=== PATIENT | female | born 1990 | race Caucasian/White ===

== ENCOUNTER 2016-10-25 01:44 | Inpatient (IN) | payer SELFPAY ==
[2016-10-25 02:18] LABS: APPEARANCE,URINE CLEAR; BILIRUBIN,URINE NEGATIVE (NEGATIVE); GLUCOSE, URINE NEGATIVE (NEGATIVE); KETONES,URINE NEGATIVE (NEGATIVE); LEUKOCYTE ESTERASE,URINE LARGE (NEGATIVE); NITRITE,URINE NEGATIVE (NEGATIVE); PROTEIN,URINE NEGATIVE (NEGATIVE); URINE SPECIFIC GRAVITY 1.005; UROBILINOGEN,URINE NEGATIVE mg/dL (<2.0)
[2016-10-25 02:24] LABS: AMNISURE (ROM) NEGATIVE (NEGATIVE)
[2016-10-25 02:34] LABS: URINE BARBITURATES SCREEN NEGATIVE; URINE METHADONE SCREEN NEGATIVE; URINE OPIATES LOW NEGATIVE; URINE PHENCYCLIDINE SCREEN NEGATIVE
[2016-10-25] MEDS ORDERED: PENICILLIN G POTASSIUM 5,000,000 UNIT in DEXTROSE 5%-WATER 100 ML IV ONE (02:44)
[2016-10-25] MEDS ORDERED: MISOPROSTOL 0.1 MG TABLET PO ONE (02:47)
[2016-10-25 03:17] LABS: ABSOLUTE LYMPHOCYTES (AUTO) 1.1 10^3/uL (0.5-4.7); ABSOLUTE MONOCYTES (AUTO) 0.5 10^3/uL (0.1-1.4); ABSOLUTE NEUT (AUTO) 5.9 10^3/uL (1.7-8.2); BASOPHILS % (AUTO) 0.2 % (0-2); EOSINOPHILS % (AUTO) 0.4 % (0-6); HEMATOCRIT 30.4 % (36.0-47.0); HEMOGLOBIN 9.7 g/dL (12.0-15.5); HGB HCT DIFFERENCE -1.3; MEAN CORPUSCULAR HEMOGLOBIN 23.8 pg (27.0-33.4); MEAN CORPUSCULAR HGB CONC 31.9 g/dL (32.0-36.0); MEAN CORPUSCULAR VOLUME 75 fl (80-97); MONOCYTES % (AUTO) 6.9 % (3-13); RED BLOOD COUNT 4.06 10^6/uL (3.72-5.28); SEGMENTED NEUTROPHILS % (AUTO) 77.5 % (42-78); WHITE BLOOD COUNT 7.6 10^3/uL (4.0-10.5)
[2016-10-25] MEDS ORDERED: MISOPROSTOL 0.1 MG TABLET ONE (03:17)
[2016-10-25] MEDS ORDERED: PENICILLIN G-K 5 MILLION UNIT VIAL ONE (03:17)
[2016-10-25 03:38] LABS: ALANINE AMINOTRANSFERASE 30 U/L (9-52); ALBUMIN 3.3 g/dL (3.5-5.0); ALKALINE PHOSPHATASE 172 U/L (38-126); ANION GAP 10 (5-19); ASPARTATE AMINO TRANSFERASE 24 U/L (14-36); BILIRUBIN,TOTAL 0.5 mg/dL (0.2-1.3); BLOOD UREA NITROGEN 8 mg/dL (7-20); CALCIUM 9.6 mg/dL (8.4-10.2); CARBON DIOXIDE 24 mmol/L (22-30); CHLORIDE 104 mmol/L (98-107); CREATININE RESULT 0.57 mg/dL (0.52-1.25); GLUCOSE 90 mg/dL (75-110); LDH 410 U/L (313-618); POTASSIUM 4.8 mmol/L (3.6-5.0); TOTAL PROTEIN 6.9 g/dL (6.3-8.2); URIC ACID 4.2 mg/dL (2.5-6.2)
[2016-10-25] MEDS: RINGERS SOLUTION,LACTATED 1,000 ML IV PRN ×2 (04:05→07:00)
[2016-10-25] MEDS ORDERED: LABETALOL HCL INJ 20 MG/4 ML DISP.SYRIN IV ONE ×2 (04:41→04:43)
[2016-10-25] MEDS ORDERED: OXYTOCIN/NORMAL SALINE 0 UNIT/0 ML RTUINJ ONE (05:05)
[2016-10-25] MEDS: OXYTOCIN/NORMAL SALINE 20 UNIT/1,000 ML RTUINJ IV PRN ×2 (05:20→08:00)
[2016-10-25 05:39] LABS: CHLAM PCR NOT DETECTED (NOT DETECT)
[2016-10-25] MEDS ORDERED: PENICILLIN G POTASSIUM 2,500,000 UNIT in DEXTROSE 5%-WATER 50 ML IV SCH (06:46)
[2016-10-25] MEDS ORDERED: FENTANYL/BUPIVACAINE/NS/PF 200 MCG/100 ML RTUINJ EPI ONE (06:58)
[2016-10-25] MEDS ORDERED: BUPIVACAINE HCL 0.25 % INJ/PF (2.5 MG/1 ML) 30 ML VIAL ONE (06:58)
[2016-10-25] MEDS ORDERED: EPHEDRINE SULFATE INJ 50 MG/1 ML AMPULE ONE (06:58)
[2016-10-25] MEDS ORDERED: MAGNESIUM SULFATE 4 GM/100 ML RTUPB IV ONE (07:30)
[2016-10-25] MEDS ORDERED: OXYTOCIN/NORMAL SALINE 20 UNIT/1,000 ML RTUINJ ONE (07:35)
[2016-10-25] MEDS ORDERED: LIDOCAINE 1% INJ-PF (10 MG/ML) 30 ML SDV ONE (07:35)
[2016-10-25] MEDS ORDERED: MISOPROSTOL 0.2 MG TABLET ONE (07:35)
[2016-10-25] MEDS ORDERED: MISOPROSTOL 0.2 MG TABLET PR PRN (07:45)
--- NOTE | 2016-10-25 08:01 | L&D Flow Sheet ---
LD Flowsheet Datetime Report Generated by CPN: 10/25/2016 08:00 Datetime: 10/25/2016 07:52 NBP Sys/Serenity/Mean (mmHg): 140 (QS system process) : 99 (QS system process) : 114 (QS system process) Pulse: 107 (QS system process) LaborFlag: Antepartum (QS system process) Datetime: 10/25/2016 07:43 NBP Sys/Serenity/Mean (mmHg): 141 (QS system process) : 99 (QS system process) : 114 (QS system process) Pulse: 115 (QS system process) LaborFlag: Antepartum (QS system process) Datetime: 10/25/2016 07:36 NBP Sys/Serenity/Mean (mmHg): 184 (QS system process) : 98 (QS system process) : 128 (QS system process) Pulse: 122 (QS system process) LaborFlag: Antepartum (QS system process) Datetime: 10/25/2016 07:35 NBP Sys/Serenity/Mean (mmHg): 161 (QS system process) : 105 (QS system process) : 125 (QS system process) Pulse: 109 (QS system process) LaborFlag: Antepartum (QS system process) Datetime: 10/25/2016 07:33 NBP Sys/Serenity/Mean (mmHg): 163 (QS system process) : 97 (QS system process) : 122 (QS system process) Pulse: 113 (QS system process) LaborFlag: Antepartum (QS system process) Datetime: 10/25/2016 07:32 NBP Sys/Serenity/Mean (mmHg): 158 (QS system process) : 96 (QS system process) : 121 (QS system process) Pulse: 111 (QS system process) LaborFlag: Antepartum (QS system process) Datetime: 10/25/2016 07:31 NBP Sys/Serenity/Mean (mmHg): 165 (QS system process) : 101 (QS system process) : 127 (QS system process) Pulse: 109 (QS system process) LaborFlag: Antepartum (QS system process) Datetime: 10/25/2016 07:27 NBP Sys/Serenity/Mean (mmHg): 178 (QS system process) : 118 (QS system process) : 141 (QS system process) Pulse: 110 (QS system process) LaborFlag: Antepartum (QS system process) Datetime: 10/25/2016 07:26 NBP Sys/Serenity/Mean (mmHg): 196 (QS system process) : 119 (QS system process) : 151 (QS system process) Pulse: 118 (QS system process) LaborFlag: Antepartum (QS system process) Datetime: 10/25/2016 07:25 NBP Sys/Serenity/Mean (mmHg): 185 (QS system process) : 109 (QS system process) : 142 (QS system process) Pulse: 111 (QS system process) LaborFlag: Antepartum (QS system process) Datetime: 10/25/2016 07:24 NBP Sys/Serenity/Mean (mmHg): 179 (QS system process) : 108 (QS system process) : 135 (QS system process) Pulse: 117 (QS system process) LaborFlag: Antepartum (QS system process) Datetime: 10/25/2016 07:23 NBP Sys/Serenity/Mean (mmHg): 189 (QS system process) : 98 (QS system process) : 130 (QS system process) Pulse: 109 (QS system process) LaborFlag: Antepartum (QS system process) Datetime: 10/25/2016 07:22 NBP Sys/Serenity/Mean (mmHg): 167 (QS system process) : 98 (QS system process) : 123 (QS system process) Pulse: 108 (QS system process) LaborFlag: Antepartum (QS system process) Datetime: 10/25/2016 07:21 NBP Sys/Serenity/Mean (mmHg): 172 (QS system process) : 99 (QS system process) : 130 (QS system process) Pulse: 108 (QS system process) LaborFlag: Antepartum (QS system process) Datetime: 10/25/2016 07:20 NBP Sys/Serenity/Mean (mmHg): 180 (QS system process) : 109 (QS system process) : 138 (QS system process) Pulse: 110 (QS system process) LaborFlag: Antepartum (QS system process) Datetime: 10/25/2016 07:19 NBP Sys/Serenity/Mean (mmHg): 176 (QS system process) : 97 (QS system process) : 128 (QS system process) Pulse: 108 (QS system process) LaborFlag: Antepartum (QS system process) Datetime: 10/25/2016 07:18 NBP Sys/Serenity/Mean (mmHg): 180 (QS system process) : 111 (QS system process) : 137 (QS system process) Pulse: 109 (QS system process) LaborFlag: Antepartum (QS system process) Datetime: 10/25/2016 07:17 NBP Sys/Serenity/Mean (mmHg): 186 (QS system process) : 113 (QS system process) : 140 (QS system process) Pulse: 113 (QS system process) LaborFlag: Antepartum (QS system process) Datetime: 10/25/2016 07:16 NBP Sys/Serenity/Mean (mmHg): 198 (QS system process) : 113 (QS system process) : 146 (QS system process) Pulse: 111 (QS system process) Epidural Procedure Other: Pump Started (Marysol Ring, RN) Anesthesia Level Check: T11 (Marysol Ring, RN) LaborFlag: Antepartum (QS system process) Datetime: 10/25/2016 07:14 NBP Sys/Serenity/Mean (mmHg): 184 (QS system process) : 104 (QS system process) : 136 (QS system process) Pulse: 115 (QS system process) LaborFlag: Antepartum (QS system process) Datetime: 10/25/2016 07:13 NBP Sys/Serenity/Mean (mmHg): 177 (QS system process) : 95 (QS system process) : 128 (QS system process) Pulse: 108 (QS system process) LaborFlag: Antepartum (QS system process) Datetime: 10/25/2016 07:12 NBP Sys/Serenity/Mean (mmHg): 182 (QS system process) : 114 (QS system process) : 141 (QS system process) Pulse: 120 (QS system process) Communication Comments: Report to Valeri Nj RN. Care relinquished at this time. Dr. Lane remains on unit assessing patient for possible magnesium therapy. (Marysol Morris RN) LaborFlag: Antepartum (QS system process) Datetime: 10/25/2016 07:11 Epidural Procedure: Loading Dose (Marysol Ring, RN) Epidural Procedure: Cath Placed (Marysol Ring, RN) Datetime: 10/25/2016 07:08 Pulse: 122 (QS system process) SpO2 (%): 99 (QS system process) LaborFlag: Antepartum (QS system process) Datetime: 10/25/2016 07:07 Procedure TIME OUT Procedure Verify: Correct Patient Identity; Correct Side and Site are Marked; Accurate Procedure Consent Form; Agreement on Procedure to be Done; Correct Patient Position; Relevant Images and Results are Properly Labeled and Displayed; Addressed Need to Administer Antibiotics or Fluids for Irrigation; Safety Precautions Based on Patient History or Medication Use (Marysol Ring, RN) Anesthesia Anesthesia Plans: Epidural (Marysol Ring, RN) Epidural Positioning: Sitting (Marysol Ring, RN) Datetime: 10/25/2016:04 Procedure TIME OUT Procedure Verify: Correct Patient Identity; Correct Side and Site are Marked; Accurate Procedure Consent Form; Agreement on Procedure to be Done; Correct Patient Position; Relevant Images and Results are Properly Labeled and Displayed; Addressed Need to Administer Antibiotics or Fluids for Irrigation; Safety Precautions Based on Patient History or Medication Use (Marysol Ring, RN) Anesthesia Anesthesia Plans: Epidural (Marysol Ring, RN) Epidural Positioning: Sitting (Marysol Ring, RN) Anesthesia Comments: Dr. Park at bedside for epidural. (Marysol Ring, RN) Datetime: 10/25/2016 07:03 Pulse: 118 (QS system process) SpO2 (%): 99 (QS system process) LaborFlag: Antepartum (QS system process) Datetime: 10/25/2016 07:00 NBP Sys/Serenity/Mean (mmHg): 186 (QS system process) : 115 (QS system process) : 141 (QS system process) Pulse: 115 (QS system process) Uterine Activity Monitor Mode: External; Palpation (Yanna Chalman, RN) Frequency (min): 2-3 (Yanna Chalman, RN) Quality: Moderate to Strong (Yanna Chalman, RN) Duration (sec): 40-60 (Yanna Chalman, RN) Pattern: Normal: <= 5 Contractions in 10 Minutes (Yanna Chalman, RN) Resting Tone (Palpate): Relaxed (Yanna Chalman, RN) Assessment A Monitor Mode: External US (Yanna Dominicman, RN) FHR Baseline Rate : 155 (Yanna Dominicman, RN) FHR Baseline Changes: No Baseline Change (Yanna Palencia RN) Variability: Moderate 6-25 bpm (Yanna Palencia RN) Accelerations: 10X10 (Yanna Palencia RN) Decelerations: None (Yanna Palencia RN) LaborFlag: Antepartum (QS system process) Datetime: 10/25/2016 06:49 Communication Comments: Dr. Lane on unit. Orders received to allow patient to receive epidural first then call/notify provider of further BPs for further possible treatment. (Marysol Morris, RN) Datetime: 10/25/2016 06:48 NBP Sys/Serenity/Mean (mmHg): 178 (QS system process) : 114 (QS system process) : 137 (QS system process) Pulse: 106 (QS system process) LaborFlag: Antepartum (QS system process) Datetime: 10/25/2016 06:45 NBP Sys/Serenity/Mean (mmHg): 181 (QS system process) : 111 (QS system process) : 134 (QS system process) Pulse: 108 (QS system process) Uterine Activity Monitor Mode: External; Palpation (Yanna Chalman, RN) Frequency (min): 2-3 (Yanna Chalman, RN) Quality: Moderate to Strong (Yanna Dominicman, RN) Duration (sec): 40-60 (Yanna Dominicman, RN) Pattern: Normal: <= 5 Contractions in 10 Minutes (Yanna Talha, RN) Resting Tone (Palpate): Relaxed (Yanna Dominicman, RN) Assessment A Monitor Mode: External US (Yanna Chalman, RN) FHR Baseline Rate : 155 (Yanna Chalman, RN) FHR Baseline Changes: No Baseline Change (Yanna Chalman, RN) Variability: Moderate 6-25 bpm (Yanna Chalman, RN) Accelerations: 10X10 (Yanna Chalman, RN) Decelerations: None (Yanna Chalman, RN) Medications Pitocin (milliunit): Pitocin Increased to (milliunits) @ 8 (Marysol Ring, RN) LaborFlag: Antepartum (QS system process) Datetime: 10/25/2016 06:43 Pulse: 229 (QS system process) SpO2 (%): 81 (QS system process) LaborFlag: Antepartum (QS system process) Datetime: 10/25/2016 06:39 Provider Reviewed Strip: Yes (Marysol Ring, RN) Communication Comments: Dr. Lane on unit (Marysol Ring, RN) Datetime: 10/25/2016 06:32 Anesthesia Comments: Call placed to Dr. Chekan (Marysol Ring, RN) Datetime: 10/25/2016 06:30 NBP Sys/Serenity/Mean (mmHg): 175 (QS system process) : 106 (QS system process) : 134 (QS system process) Pulse: 107 (QS system process) Uterine Activity Monitor Mode: External; Palpation (Yanna Chalman, RN) Frequency (min): 2-4 (Yanna Chalman, RN) Quality: Moderate to Strong (Yanna Chalman, RN) Duration (sec): 40-50 (Yanna Chalman, RN) Pattern: Normal: <= 5 Contractions in 10 Minutes (Yanna Chalman, RN) Resting Tone (Palpate): Relaxed (Yanna Chalman, RN) Assessment A Monitor Mode: External US (Yanna Chalman, RN) FHR Baseline Rate : 155 (Yanna Chalman, RN) FHR Baseline Changes: No Baseline Change (Yanna Chalman, RN) Variability: Moderate 6-25 bpm (Yanna Chalman, RN) Accelerations: 10X10 (Yanna Chalman, RN) Decelerations: None (Yanna Chalman, RN) LaborFlag: Antepartum (QS system process) Datetime: 10/25/2016 06:16 Medications Pitocin (milliunit): Pitocin Increased to (milliunits) @ 6 (Marysol Ring, RN) Datetime: 10/25/2016 06:15 Uterine Activity Monitor Mode: External; Palpation (Marysol Ring, RN) Frequency (min): x2 (Marysol Ring, RN) Quality: Mild/Moderate (Marysol Ring, RN) Duration (sec): 40-60 (Marysol Ring, RN) Resting Tone (Palpate): Relaxed (Marysol Ring, RN) Assessment A Monitor Mode: External US (Marysol Ring, RN) FHR Baseline Rate : 150 (Marysol Ring, RN) Variability: Minimal - Undetectable to <=5 bpm (Marysol Ring, RN) Accelerations: None (Marysol Ring, RN) Decelerations: Variable (Marysol Ring, RN) Medications Pitocin (milliunit): Pitocin Remains (milliunits) @ 4 (Marysol Ring, RN) Datetime: 10/25/2016 06:07 Patient Care IV/Blood Work: IV Bolus Started (Marysol Ring, RN) Patient Care Comments: for epidural (Marysol Ring, RN) Procedure TIME OUT Procedure Verify: Correct Patient Identity; Correct Side and Site are Marked; Accurate Procedure Consent Form; Correct Patient Position; Relevant Images and Results are Properly Labeled and Displayed; Addressed Need to Administer Antibiotics or Fluids for Irrigation; Safety Precautions Based on Patient History or Medication Use (Marysol Ring, RN) Anesthesia Anesthesia Plans: Epidural (Marysol Ring, RN) Epidural Positioning: Sitting (Marysol Ring, RN) Datetime: 10/25/2016 06:05 Vaginal Exam Dilatation (cm): 2.5 (Marysol Ring, RN) Effacement (%): 80 (Marysol Ring, RN) Station: -2 (Marysol Ring, RN) Exam by: B. Ring RN (Marysol Ring, RN) Vaginal Bleeding: None (Marysol Ring, RN) Cervix, Consistency: Soft (Marysol Ring, RN) Cervix, Position: Posterior (Marysol Ring, RN) Datetime: 10/25/2016 06:04 Pain Coping: Requesting Pain Medication or Epidural (Marysol Ring, RN) Datetime: 10/25/2016 06:03 Patient Position/Activity: Left Lateral (Marysol Ring, RN) Datetime: 10/25/2016 06:02 Actions for Decelerations: Side to Side (Marysol Ring, RN) Comments: Pt sitting straight up and leaning over (Marysol Ring, RN) Communication Communication: RN at Bedside (Marysol Ring, RN) Datetime: 10/25/2016 06:00 Uterine Activity Monitor Mode: External; Palpation (Marysol Ring, RN) Frequency (min): 4-7 (Marysol Ring, RN) Quality: Mild/Moderate (Marysol Ring, RN) Duration (sec): 40-70 (Marysol Ring, RN) Resting Tone (Palpate): Relaxed (Marysol Ring, RN) Assessment A Monitor Mode: External US (Marysol Ring, RN) FHR Baseline Rate : 150 (Marysol Ring, RN) Variability: Moderate 6-25 bpm (Marysol Ring, RN) Accelerations: 15X15 (Marysol Ring, RN) Decelerations: None (Marysol Ring, RN) Medications Pitocin (milliunit): Pitocin Remains (milliunits) @ 4 (Marysol Ring, RN) Datetime: 10/25/2016 05:50 Hygiene: Underpad Changed; Peripad Changed (Marysol Ring, RN) I/O Interventions: Up to BR (Marysol Ring, RN) Datetime: 10/25/2016 05:45 NBP Sys/Serenity/Mean (mmHg): 147 (QS system process) : 95 (QS system process) : 114 (QS system process) Pulse: 95 (QS system process) Uterine Activity Monitor Mode: External; Palpation (Marysol Ring, RN) Frequency (min): x2 (Marysol Ring, RN) Quality: Mild (Marysol Ring, RN) Duration (sec): 40-70 (Marysol Ring, RN) Resting Tone (Palpate): Relaxed (Marysol Ring, RN) Assessment A Monitor Mode: External US (Marysol Ring, RN) FHR Baseline Rate : 145 (Marysol Ring, RN) Variability: Moderate 6-25 bpm (Marysol Ring, RN) Accelerations: 15X15 (Marysol Ring, RN) Decelerations: None (Marysol Ring, RN) Medications Pitocin (milliunit): Pitocin Increased to (milliunits) @ 4 (Marysol Ring, RN) LaborFlag: Antepartum (QS system process) Datetime: 10/25/2016 05:30 NBP Sys/Serenity/Mean (mmHg): 144 (QS system process) : 94 (QS system process) : 114 (QS system process) Pulse: 105 (QS system process) Uterine Activity Monitor Mode: External; Palpation (Marysol Ring, RN) Frequency (min): Irregular (Marysol Ring, RN) Quality: Mild (Marysol Ring, RN) Duration (sec): 40-50 (Marysol Ring, RN) Resting Tone (Palpate): Relaxed (Marysol Ring, RN) Assessment A Monitor Mode: External US (Marysol Ring, RN) FHR Baseline Rate : 150 (Marysol Ring, RN) Variability: Moderate 6-25 bpm (Marysol Ring, RN) Accelerations: 15X15 (Marysol Ring, RN) Decelerations: None (Marysol Ring, RN) Medications Pitocin (milliunit): Pitocin Remains (milliunits) @ 2 (Marysol Ring, RN) LaborFlag: Antepartum (QS system process) Datetime: 10/25/2016 05:22 Patient Position/Activity: Right Tilt (Marysol Ring, RN) Datetime: 10/25/2016 05:19 Hygiene: Underpad Changed; Peripad Changed (Marysol Ring, RN) Datetime: 10/25/2016 05:13 I/O Interventions: Up to BR (Marysol Ring, RN) Datetime: 10/25/2016 05:12 NBP Sys/Serenity/Mean (mmHg): 146 (QS system process) : 88 (QS system process) : 111 (QS system process) Pulse: 98 (QS system process) Medications Pitocin (milliunit): Pitocin Started (milliunits) @ 2 (Marysol Ring, RN) LaborFlag: Antepartum (QS system process) Datetime: 10/25/2016 05:09 Patient Care Comments: LR restarted after d5 bolus (Marysol Ring, RN) Datetime: 10/25/2016 05:01 Pain Pain Scale: 2 (Marysol Ring, RN) Pain Presence: Intermittent (Marysol Ring, RN) Pain Type: Contraction (Marysol Ring, RN) Pain Location: Abdomen (Marysol Ring, RN) Pain Goal: 1 (Marysol Ring, RN) Pain Relief Measures: Comfort Measures (Marysol Ring, RN) Pain Coping: Talking Through Contractions (Marysol Ring, RN) LaborFlag: Antepartum (QS system process) Datetime: 10/25/2016 05:00 Uterine Activity Monitor Mode: External; Palpation (Marysol Ring, RN) Frequency (min): Irregular (Marysol Ring, RN) Quality: Mild (Marysol Ring, RN) Duration (sec): 40-50 (Marysol Ring, RN) Resting Tone (Palpate): Relaxed (Marysol Ring, RN) Assessment A Monitor Mode: External US (Marysol Ring, RN) FHR Baseline Rate : 150 (Marysol Ring, RN) Variability: Moderate 6-25 bpm (Marysol Ring, RN) Accelerations: 15X15 (Marysol Ring, RN) Decelerations: None (Marysol Ring, RN) Datetime: 10/25/2016 04:59 NBP Sys/Serenity/Mean (mmHg): 144 (QS system process) : 84 (QS system process) : 109 (QS system process) Pulse: 97 (QS system process) Medication Comments: 300 ml d5LR bolus given IV now x 1 (Marysol Ring, RN) LaborFlag: Antepartum (QS system process) Datetime: 10/25/2016 04:58 NBP Sys/Serenity/Mean (mmHg): 146 (QS system process) : 91 (QS system process) : 113 (QS system process) Pulse: 100 (QS system process) LaborFlag: Antepartum (QS system process) Datetime: 10/25/2016 04:57 NBP Sys/Serenity/Mean (mmHg): 147 (QS system process) : 92 (QS system process) : 114 (QS system process) Pulse: 98 (QS system process) LaborFlag: Antepartum (QS system process) Datetime: 10/25/2016 04:53 NBP Sys/Serenity/Mean (mmHg): 156 (QS system process) : 100 (QS system process) : 120 (QS system process) Pulse: 102 (QS system process) LaborFlag: Antepartum (QS system process) Datetime: 10/25/2016 04:50 Medication Comments: 10 mg IV push labetalol now x1 given over 2 minutes for blood pressure. (Marysol Ring, RN) Datetime: 10/25/2016 04:42 NBP Sys/Serenity/Mean (mmHg): 157 (QS system process) : 102 (QS system process) : 124 (QS system process) Pulse: 99 (QS system process) LaborFlag: Antepartum (QS system process) Datetime: 10/25/2016 04:37 Communication Comments: Dr. Lane notified of BP. Orders received to give 10 mg IV labetalol now x1 (Marysol Ring, RN) Datetime: 10/25/2016 04:33 NBP Sys/Serenity/Mean (mmHg): 160 (QS system process) : 109 (QS system process) : 128 (QS system process) Pulse: 102 (QS system process) LaborFlag: Antepartum (QS system process) Datetime: 10/25/2016 04:30 Uterine Activity Monitor Mode: External; Palpation (Marysol Ring, RN) Frequency (min): Occasional (Marysol Ring, RN) Quality: Mild (Marysol Ring, RN) Duration (sec): 40-60 (Marysol Ring, RN) Resting Tone (Palpate): Relaxed (Marysol Ring, RN) Assessment A Monitor Mode: External US (Marysol Ring, RN) FHR Baseline Rate : 155 (Marysol Ring, RN) Variability: Minimal - Undetectable to <=5 bpm (Marysol Ring, RN) Accelerations: None (Marysol Ring, RN) Decelerations: None (Marysol Ring, RN) Datetime: 10/25/2016 04:23 Communication Communication: Provider Orders Received; Call/Page Placed to Provider (Yanna Palencia RN) Notification Reason: Status Update; Status; Maternal Vital Sign Change; Lab/Diagnostic Study (Yanna Palencia RN) Communication Comments: Call placed to Dr. Lane. Report to include FHR, unable to begin cytotec due to nonreactive strip, toco data, vitals, urinalysis and lab results. Orders received to give 300 ml bolus of d5w then start pitocin as soon as baby is reactive at 2 miliunits/hr and go up 2 miliunits/hr q30 minutes for a maximum of 20 miliunits/hr or until adequate labor is established. (Yanna Palencia RN) Datetime: 10/25/2016 04:12 NBP Sys/Serenity/Mean (mmHg): 155 (QS system process) : 96 (QS system process) : 120 (QS system process) Pulse: 105 (QS system process) Respirations: 20 (Marysol Ring, RN) Temperature (F): 98.4 (Marysol Ring, RN) Temperature (C): 36.9 (QS system process) Temperature Route: Oral (Marysol Morris, RN) I/O Interventions: Up to BR (Marysol Ring, RN) LaborFlag: Antepartum (QS system process) Datetime: 10/25/2016 04:05 Antibiotics: Start Antibiotics; Penicillin IV (Units) @ 5,000,000 (Marysol Ring, RN) Datetime: 10/25/2016 04:02 NBP Sys/Serenity/Mean (mmHg): 152 (QS system process) : 95 (QS system process) : 118 (QS system process) Pulse: 101 (QS system process) LaborFlag: Antepartum (QS system process) Datetime: 10/25/2016 04:00 Uterine Activity Monitor Mode: External; Palpation (Marysol Ring, RN) Frequency (min): Irregular (Marysol Ring, RN) Quality: Mild (Marysol Ring, RN) Duration (sec): 40-70 (Marysol Ring, RN) Resting Tone (Palpate): Relaxed (Marysol Ring, RN) Assessment A Monitor Mode: External US (Marysol Ring, RN) FHR Baseline Rate : 155 (Maryslo Ring, RN) Variability: Minimal - Undetectable to <=5 bpm (Marysol Ring, RN) Accelerations: 10X10 (Marysol Ring, RN) Decelerations: None (Marysol Ring, RN) Datetime: 10/25/2016 03:59 Pain Pain Scale: 2 (Marysol Ring, RN) Pain Presence: Intermittent (Marysol Ring, RN) Pain Type: Contraction (Marysol Ring, RN) Pain Location: Abdomen (Marysol Ring, RN) Pain Goal: 1 (Marysol Ring, RN) Pain Relief Measures: Comfort Measures (Marysol Ring, RN) Pain Coping: Talking Through Contractions; Breathing Through Contractions (Marysol Ring, RN) LaborFlag: Antepartum (QS system process) Datetime: 10/25/2016 03:53 NBP Sys/Serenity/Mean (mmHg): 162 (QS system process) : 111 (QS system process) : 132 (QS system process) Pulse: 106 (QS system process) LaborFlag: Antepartum (QS system process) Datetime: 10/25/2016 03:38 I/O Interventions: Up to BR (Marysol Ring, RN) Datetime: 10/25/2016 03:30 Uterine Activity Monitor Mode: External; Palpation (Marysol Ring, RN) Frequency (min): Irregular (Marysol Ring, RN) Quality: Mild (Marysol Ring, RN) Duration (sec): 40-50 (Marysol Ring, RN) Resting Tone (Palpate): Relaxed (Marysol Ring, RN) Assessment A Monitor Mode: External US (Marysol Ring, RN) FHR Baseline Rate : 155 (Marysol Ring, RN) Variability: Minimal - Undetectable to <=5 bpm (Marysol Ring, RN) Accelerations: None (Marysol Ring, RN) Decelerations: None (Marysol Ring, RN) Datetime: 10/25/2016 03:17 I/O Interventions: Up to BR (Marysol Ring, RN) Datetime: 10/25/2016 03:00 Uterine Activity Monitor Mode: External; Palpation (Marysol Ring, RN) Frequency (min): Irregular (Marysol Ring, RN) Quality: Mild (Marysol Ring, RN) Duration (sec): 40-70 (Marysol Ring, RN) Resting Tone (Palpate): Relaxed (Marysol Ring, RN) Assessment A Monitor Mode: External US (Marysol Ring, RN) FHR Baseline Rate : 150 (Marysol Ring, RN) Variability: Minimal - Undetectable to <=5 bpm (Marysol Ring, RN) Accelerations: None (Marysol Ring, RN) Decelerations: None (Marysol Ring, RN) Datetime: 10/25/2016 02:43 Communication Communication: Provider Orders Received; Call/Page Placed to Provider (Marysol Morris RN) Communication Comments: Call placed to Dr. Lane. Report to include amnisure negative, but amniotic fluid visualized with moderate meconium, SVE, FHR, toco data, vital signs with BP out of normal limits. Orders received to admit patient, give 25 mcg PO now x1, may have an epidural when desired and draw PIH labs. Call provider when further orders needed. (Marysol Morris RN) Datetime: 10/25/2016 02:42 NBP Sys/Serenity/Mean (mmHg): 141 (QS system process) : 100 (QS system process) : 117 (QS system process) Pulse: 103 (QS system process) LaborFlag: Antepartum (QS system process) Datetime: 10/25/2016 02:35 I/O Interventions: Ice Chips Given; Clear Liquids Given (Marysol Ring, RN) Datetime: 10/25/2016 02:30 NBP Sys/Serenity/Mean (mmHg): 153 (QS system process) : 99 (QS system process) : 121 (QS system process) Pulse: 99 (QS system process) Uterine Activity Monitor Mode: External; Palpation (Marysol Ring, RN) Frequency (min): Irregular (Marysol Ring, RN) Quality: Mild (Marysol Ring, RN) Duration (sec): 40-70 (Marysol Ring, RN) Resting Tone (Palpate): Relaxed (Marysol Ring, RN) Assessment A Monitor Mode: External US (Marysol Ring, RN) FHR Baseline Rate : 145 (Marysol Ring, RN) Variability: Moderate 6-25 bpm (Marysol Ring, RN) Accelerations: 10X10 (Marysol Ring, RN) Decelerations: None (Marysol Ring, RN) Hygiene: Underpad Changed; Peripad Changed; Gown Changed (Marysol Ring, RN) I/O Interventions: Up to BR (Marysol Ring, RN) LaborFlag: Antepartum (QS system process) Datetime: 10/25/2016 02:20 NBP Sys/Serenity/Mean (mmHg): 155 (QS system process) : 105 (QS system process) : 125 (QS system process) Pulse: 112 (QS system process) LaborFlag: Antepartum (QS system process) Datetime: 10/25/2016 02:18 Vaginal Exam Dilatation (cm): 1.0 (Marysol Ring, RN) Effacement (%): 25 (Marysol Ring, RN) Station: -2 (Marysol Ring, RN) Exam by: B. Ring RN (Marysol Ring, RN) Vaginal Bleeding: None (Marysol Ring, RN) Cervix, Consistency: Soft (Marysol Ring, RN) Cervix, Position: Posterior (Marysol Ring, RN) Datetime: 10/25/2016 02:17 Membrane Status: Ruptured (Marysol Ring, RN) Amniotic Fluid Color: Moderate Meconium (Marysol Ring, RN) Amniotic Fluid Odor: Normal (Marysol Ring, RN) Membrane Comments: Moderate amniotic fluid with meconium noted on peripad. (Marysol Ring, RN) Datetime: 10/25/2016 02:16 NBP Sys/Serenity/Mean (mmHg): 161 (QS system process) : 108 (QS system process) : 129 (QS system process) Pulse: 112 (QS system process) LaborFlag: Antepartum (QS system process) Datetime: 10/25/2016 02:15 Patient Position/Activity: Left Tilt (Marysol Ring, RN) Datetime: 10/25/2016 02:14 NBP Sys/Serenity/Mean (mmHg): 153 (QS system process) : 101 (QS system process) : 120 (QS system process) Pulse: 114 (QS system process) Respirations: 20 (Marysol Ring, RN) Temperature (F): 98.1 (Marysol Ring, RN) Temperature (C): 36.7 (QS system process) Temperature Route: Oral (Marysol Ring, RN) LaborFlag: Antepartum (QS system process) Datetime: 10/25/2016 02:09 Frequency (min): Irregular (Marysol Ring, RN) Pain Pain Scale: 2 (Marysol Ring, RN) Pain Presence: Intermittent (Marysol Ring, RN) Pain Type: Contraction (Marysol Ring, RN) Pain Location: Abdomen (Marysol Ring, RN) Pain Goal: 1 (Marysol Ring, RN) Pain Relief Measures: Comfort Measures (Marysol Ring, RN) Pain Coping: Talking Through Contractions; Breathing Through Contractions (Marysol Ring, RN) Vaginal Bleeding: None (Marysol Ring, RN) Maternal Assessment Level of Consciousness: Fully Conscious (Marysol Ring, RN) DTR's/Clonus: DTRs 2+; No Clonus (Marysol Ring, RN) Headache: Denies (Marysol Ring, RN) Nausea/Vomiting: Present (Annotations: Pt states feeling slightly nauseated) (Marysol Ring, RN) RUQ Epigastric Pain: Denies (Marysol Ring, RN) Teaching Instructional Method: Verbal; Patient Instructed; Family/Support Person Instructed; Verbalized Understanding (Marysol Ring, RN) Plan of Care: Plan of Care Discussed (Marysol Ring, RN) Unit Routine: Celina to Room; Call Padgett; Bed; Handwashing; Monitoring; Safety/Fall Risk Prevention; Bathroom Privileges (Marysol Ring, RN) LaborFlag: Antepartum (QS system process) Datetime: 10/25/2016 02:07 Vital Signs Stage of : Antepartum (Marysol Ring, RN) Datetime: 10/25/2016 02:03 Membranes Ruptured Date/Time: 10/25/2016 02:17 (Lilly Liang RN) Membranes Rupture Method: Spontaneous (Lilly Liang RN) Amniotic Fluid Amount: Moderate (Lilly Liang RN)
[2016-10-25] MEDS ORDERED: DIBUCAINE 1% OINTMENT 28 GM TP PRN (09:03)
[2016-10-25] MEDS ORDERED: ACETAMINOPHEN WITH CODEINE #3 TABLET PO PRN ×2 (09:03)
[2016-10-25] MEDS ORDERED: MEASLES,MUMPS&RUBELLA VACC/PF 0.5 ML VIAL SUBCUT PRN (09:03)
[2016-10-25] MEDS ORDERED: BENZOCAINE/MENTHOL AEROSOL SPRAY 56 ML TOP PRN (09:03)
[2016-10-25] MEDS ORDERED: ZOLPIDEM TARTRATE 5 MG TABLET PO PRN (09:03)
[2016-10-25] MEDS ORDERED: OXYTOCIN/NORMAL SALINE 1,000 ML IV PRN (09:03)
[2016-10-25] MEDS ORDERED: DIPH/PERTUSS(ACELL)/TETANUS VAC/PF 0.5 ML SYR (>=10YO) IM PRN (09:03)
--- NOTE | 2016-10-25 09:03 | Delivery Summary ---
Del Sum A-C Datetime Report Generated by CPN: 10/25/2016 09:03 ADMISSION DATA Chief Complaint: Suspected Ruptured Membranes Indication for Induction: Not Applicable Admission Impression: Term, Intrauterine ; No Active Labor; Ruptured Membranes Admit Provider Comments: GBS Unknown DELIVERY PERSONNEL Delivery Doctor:: Irvin Lane, DO Labor and Delivery Nurse:: Monica Nj RN Nursery Nurse:: Lilly Liang RN Student Observers:: SN Malina Manager Student Services/SMALL MACHINE BINDERY OPERATOR: Priti Caballero, PHYSICS FACULTY MEMBER MATERNAL INFORMATION Delivery Anesthesia: Epidural Medications After Delivery: Pitocin Bolus-Please Comment; Other-Please Comment Meds After Delivery Comment: 20 units pitocin in 1000mL NSS Cytotec 1000 mcg AR Estimated Blood Loss (ml): 150 Maternal Complications: Precipitous Labor (<3hrs) Provider Comments: of viable female in EMMETT position Loose Nuchal x1 easily reduced Placenta delievered spontaneous and intact with 3v cord Fundus firm LABOR SUMMARY EDC: 10/23/2016 00:00 No. Babies in Womb: 1 Attempted: No Labor Anesthesia: Epidural LABOR INFORMATION Reason for Induction: Not Applicable Onset of Labor: 10/25/2016 02:17 Complete Dilatation: 10/25/2016 07:27 Oxytocin: Augmentation Group B Beta Strep: unnown Antibiotics # of Doses: 1 Antibiotics Time of Last Dose: 0405 Name of Antibiotic Given: PCN Steroids Given: None Reason Steroids Not Administered: Not Applicable MEMBRANES Membranes Rupture Method: Spontaneous Rupture of Membranes: 10/25/2016 02:17 Length of Rupture (hr): 5.37 Amniotic Fluid Color: Moderate Meconium Amniotic Fluid Amount: Moderate Amniotic Fluid Odor: Normal STAGES OF LABOR Stage 1 hr: 5 Stage 1 min: 10 Stage 2 hr: 0 Stage 2 min: 12 Stage 3 hr: 0 Stage 3 min: 2 Total Time in Labor hr: 5 Total Time in Labor min: 24 VAGINAL DELIVERY Episiotomy: None Laceration Extension: N/A Laceration Type: None Sponge Count Correct: Yes CSECTION DELIVERY CSection Incision: N/A BABY A INFORMATION Delivery Date/Time: 10/25/2016 07:39 Method of Delivery: Vaginal Born in Route : No : N/A Forceps: N/A Vacuum Extraction: N/A Shoulder Dystocia : No PRESENTATION/POSITION BABY A Presentation: Cephalic Cephalic Presentation: Vertex Vertex Position: Right Occipital Anterior Breech Presentation: N/A PLACENTA INFORMATION BABY A Placenta Delivery Time : 10/25/2016 07:41 Placenta Method of Delivery: Spontaneous Placenta Status: Delivered SCORES BABY A Heart Rate 1 min: >100 bpm Resp Effort 1 min: Good Cry Reflex Irritability 1 min: Cough or Sneeze or Pulls Away Muscle Tone 1 min: Active Motion Color 1 min: Blue/Pale Resuscitation Effort 1 min: Tactile Stimulation SCORE 1 MIN: 8 Heart Rate 5 min: >100 bpm Resp Effort 5 min: Good Cry Reflex Irritability 5 min: Cough or Sneeze or Pulls Away Muscle Tone 5 min: Active Motion Color 5 min: Body Dunean, Extremities Blue Resuscitation Effort 5 min: Tactile Stimulation SCORE 5 MIN: 9 INFANT INFORMATION BABY A Gestational Age at Delivery: 40.2 Gestational Status: Full Term- 39- 40.6 Weeks Outcome : Liveborn Condition : Stable Infant Sex: Female IDENTIFICATION BABY A Verification Date/Time: 10/25/2016 08:02 ID Band Number: [id number] Mother's Name Verified: Yes RN Verifying : H. Azul, RN and L. Nj RN WEIGHT/LENGTH BABY A Infant Birthweight (gm): 3230 Infant Weight (lb): 7 Weight (oz): 2 Infant Length (in): 19.75 Infant Length (cm): 50.17 CORD INFORMATION BABY A No. Cord Vessels: 3 Nuchal Cord : Around Neck x1, Loose Cord Blood Taken: Yes-For Storage (Mom's Blood type +) Infant Suction: Mouth; Nose ASSESSMENT BABY A Complications: Meconium Physical Findings at Delivery: Within Normal Limits Infant Respirations: Appears Normal Skin to Skin: Yes (Annotations: Data stored by [facility] on behalf of user) Skin to Skin Time (min): 50 Multimedia Assistant/ALS Called : No Infant Care By: Zuleyma Liang RN Transferred To: Remains with Mother SIGNATURES Signature: with User ID: [email or web address]
[2016-10-25] MEDS ORDERED: PENICILLIN G-K 5 MILLION UNIT VIAL IV SCH (10:46)
--- NOTE | 2016-10-25 11:04 | Admission Physical ---
Datetime Report Generated by CPN: 10/25/2016 11:04 CURRENT ADMISSION Chief Complaint: Suspected Ruptured Membranes Indication for Induction: Not Applicable Admit Plan: Admit to Unit; Initiate Labor Induction Protocol ALLERGIES Medication Allergies: No Medication Allergies: latex (10/25/2016) Latex: Latex Allergies Food Allergies: None Environmental Allergies: None OBSTETRICAL HISTORY EDC: 10/23/2016 00:00 : 3 Para: 2 Term: 2 : 0 SAB: 0 IAB: 0 Ectopic: 0 Livin Cesareans: 0 VBACs: 0 Multiple Births: 0 Gestational Diabetes: No Rh Sensitization: No Incompetent Cervix: No COCO: No Infertility: No ART Treatment: No Uterine Anomaly: No IUGR: No Hx Previous C/S: No Macrosomia: No Hx Loss/Stillborn: No PIH: No Hx : No Placenta Previa/Abruption: No Depression/PP Depression: No PTL/PROM: No Post Hemorrhage: No Current Procedures: Ultrasound Obstetrical History Comments: G1: 02/2012; girl 6# 8 oz at 38 weeks G2: 03/2014; boy 6#12 oz at 38 weeks G3: current SEE RECORDS Alcohol: No Marijuana : No Cocaine: No Other Illicit Drugs: No Cigarettes: Never Smoker. [id number] MEDICAL HISTORY Diabetes: No Blood Transfusion: No Pulmonary Disease (Asthma, TB): No Breast Disease: No Hypertension: No Certified Prosthetist/Orthotist Surgery: No Heart Disease: No Hosp/Surgery: Yes Autoimmune Disorder: No Anesthetic Complications: No Kidney Disease: No Abnormal Pap Smear: No Neuro/Epilepsy: No Psychiatric Disorders: Yes Other Medical Diseases: No Hepatitis/Liver Disease: No Significant Family History: No Varicosities/Phlebitis: No Trauma/Violence : No Thyroid Dysfunction: No Medical History Comments: Hospitalized for of children; adenoidectomy in 2003 INFECTIOUS HISTORY Gonorrhea: No Genital Herpes: No Chlamydia: No Tuberculosis: No Syphilis: No Hepatitis: No HIV/AIDS Exposure: No Rash or Viral Illness: No HPV: No PHYSICAL EXAM General: Normal HEENT: Normal Neurologic: Normal Thyroid: Deferred Heart: Normal Lungs: Normal Breast: Deferred Back: Normal Abdomen: Normal Genitourinary Exam: Normal Extremities: Normal DTRs: Normal Pelvic Type: Adequate Vital Signs: Reviewed; Within Normal Limits VAGINAL EXAM Dilatation: 1 Effacement: 50 Station: -3 MEMBRANES Membranes: Ruptured Amniotic Fluid Color: Meconium, Light FETUS A EGA: 40.2 Monitoring: External US FHR- Baseline: 150 Accelerations: 15X15 Decelerations: None FHR Category: Category I Presentation: Vertex Admit Comment: GBS Unknown PLANS FOR LABOR AND DELIVERY Labor and Delivery: None Pain Management: Epidural Feeding Preference: Breast Benefit of Breast Feed Discussed: Yes Circumcision: N/A INFORMED CONSENT Signature: with User ID: [email or web address]
[2016-10-25] MEDS: SENNOSIDES/DOCUSATE 8.6-50 MG 1 EACH TABLET PO SCH (13:29)
[2016-10-25] MEDS: FERROUS SULFATE 325 MG TABLET PO SCH ×2 (13:29→17:42)
[2016-10-25] MEDS: PRENATAL VITAMIN W-O CA NO5/FE FUMARATE/FA CAPSULE PO SCH (13:29)
[2016-10-25] MEDS: DOCUSATE SODIUM 100 MG CAPSULE PO SCH ×2 (13:29→17:42)
[2016-10-25] MEDS: IBUPROFEN 800 MG TABLET PO SCH ×2 (13:31→21:54)
[2016-10-25] MEDS ORDERED: INFLUENZA ADLT QUAD (36MOS+) 2016-17 VAC 0.5 ML SYR IM PRN (13:52)
--- NOTE | 2016-10-25 19:01 | L&D Flow Sheet ---
LD Flowsheet Datetime Report Generated by CPN: 10/25/2016 19:00 Datetime: 10/25/2016 09:08 NBP Sys/Serenity/Mean (mmHg): 145 (QS system process) : 97 (QS system process) : 115 (QS system process) Pulse: 109 (QS system process) Respirations: 16 (Monica Nj RN) Pain Scale: 0 (Monica Nj RN) Pain Presence: None/Denies (Monica Nj RN) Pain Type: N/A (Monica Nj RN) Pain Goal: 0 (Monica Nj RN) Datetime: 10/25/2016 08:56 NBP Sys/Serenity/Mean (mmHg): 156 (QS system process) : 101 (QS system process) : 121 (QS system process) Pulse: 111 (QS system process) Respirations: 16 (Monica Nj, RN) Temperature (F): 98.3 (Monica Nj, RN) Temperature (C): 36.8 (QS system process) Temperature Route: Oral (Monica Nj, RN) Pain Scale: 0 (Monica Nj, RN) Pain Presence: None/Denies (Monica Nj, RN) Pain Type: N/A (Monica Nj, RN) Pain Goal: 0 (Monicatracy Burnetton, RN) Datetime: 10/25/2016 08:53 NBP Sys/Serenity/Mean (mmHg): 155 (QS system process) : 102 (QS system process) : 125 (QS system process) Pulse: 106 (QS system process) Respirations: 16 (Monica Nj, RN) Pain Scale: 0 (Monica Nj, RN) Pain Presence: None/Denies (Monica Nj, RN) Pain Type: N/A (Monica Nj, RN) Pain Goal: 0 (Monica Nj, RN) Datetime: 10/25/2016 08:38 NBP Sys/Serenity/Mean (mmHg): 146 (QS system process) : 98 (QS system process) : 117 (QS system process) Pulse: 104 (QS system process) Respirations: 16 (Monica Nj, RN) Pain Scale: 0 (Monica Nj, RN) Pain Presence: None/Denies (Monica Nj, RN) Pain Type: N/A (Monica Nj, RN) Pain Goal: 0 (Monica Nj, RN) Datetime: 10/25/2016 08:23 NBP Sys/Serenity/Mean (mmHg): 147 (QS system process) : 101 (QS system process) : 118 (QS system process) Pulse: 103 (QS system process) Respirations: 16 (Monica Nj, RN) Pain Scale: 0 (Monica Burnetton, RN) Pain Presence: None/Denies (Monica Nj, RN) Pain Type: N/A (Monica Nj, RN) Pain Goal: 0 (Monica Nj, RN) Datetime: 10/25/2016 08:08 NBP Sys/Serenity/Mean (mmHg): 144 (QS system process) : 100 (QS system process) : 117 (QS system process) Pulse: 108 (QS system process) Respirations: 16 (Monicatracy Nj, RN) Pain Scale: 0 (Monica Nj, RN) Pain Presence: None/Denies (Monica Nj, RN) Pain Type: N/A (Monica Nj, RN) Pain Goal: 0 (Monica Nj, RN) Datetime: 10/25/2016 07:52 NBP Sys/Serenity/Mean (mmHg): 140 (QS system process) : 99 (QS system process) : 114 (QS system process) Pulse: 107 (QS system process) Respirations: 16 (Monicatracy Nj, RN) Pain Scale: 0 (Monica Nj, RN) Pain Presence: None/Denies (Monica Nj, RN) Pain Type: N/A (Monica Nj, RN) Pain Goal: 0 (Monica Nj, RN) Datetime: 10/25/2016 07:43 NBP Sys/Serenity/Mean (mmHg): 141 (QS system process) : 99 (QS system process) : 114 (QS system process) Pulse: 115 (QS system process) Respirations: 16 (Monica Nj RN) Pain Scale: 0 (Monica Nj RN) Pain Presence: None/Denies (Monica Nj, JANICE) Pain Type: N/A (Monica Nj RN) Pain Goal: 0 (Monica Nj RN) Datetime: 10/25/2016 07:41 Stage 2 Comments: Placenta delivered; Pitocin bolusing. (Monica Nj, JANICE) Datetime: 10/25/2016 07:39 Stage of : Recovery (Monica Nj RN) Stage 2 Comments: viable girl; see delivery summary (Monica Nj RN) Datetime: 10/25/2016 07:38 Stage 2 Comments: room set up for delivery (Monica Nj, RN) Communication: Provider at Bedside (Monica Nj, RN) Provider Notified (Name): Lane. (Monica Nj, RN) Datetime: 10/25/2016 07:37 Communication: Call/Page Placed to Provider (Monica Nj, RN) Provider Notified (Name): Lane (Monica Nj, RN) Communication Comments: Notified of SVE, pt. urge to push, and imminent delivery. (Monica Nj, RN) Datetime: 10/25/2016 07:36 NBP Sys/Serenity/Mean (mmHg): 184 (QS system process) : 98 (QS system process) : 128 (QS system process) Pulse: 122 (QS system process) LaborFlag: Antepartum (QS system process) Datetime: 10/25/2016 07:35 NBP Sys/Serenity/Mean (mmHg): 161 (QS system process) : 105 (QS system process) : 125 (QS system process) Pulse: 109 (QS system process) LaborFlag: Antepartum (QS system process) Datetime: 10/25/2016 07:33 NBP Sys/Serenity/Mean (mmHg): 163 (QS system process) : 97 (QS system process) : 122 (QS system process) Pulse: 113 (QS system process) Pain Scale: 0 (Monica Nj RN) Pain Presence: None/Denies (Monica Nj RN) Pain Type: N/A (Monica Nj RN) Pain Goal: 0 (Monica Nj RN) LaborFlag: Antepartum (QS system process) Datetime: 10/25/2016 07:32 NBP Sys/Serenity/Mean (mmHg): 158 (QS system process) : 96 (QS system process) : 121 (QS system process) Pulse: 111 (QS system process) LaborFlag: Antepartum (QS system process) Datetime: 10/25/2016 07:31 NBP Sys/Serenity/Mean (mmHg): 165 (QS system process) : 101 (QS system process) : 127 (QS system process) Pulse: 109 (QS system process) Communication Comments: RN at bedside to remain until delivery (Lilly Liang RN) LaborFlag: Antepartum (QS system process) Datetime: 10/25/2016 07:30 Monitor Mode: External (Lilly Azul, RN) Frequency (min): 2-3 (Lilly Azul, RN) Quality: Moderate to Strong (Lilly Azul, RN) Duration (sec): 60 (Lilly Azul, RN) Resting Tone (Palpate): Relaxed (Lilly Azul, RN) Monitor Mode: External US (Lilly Azul, RN) FHR Baseline Rate : 150 (Lilly Azul, RN) Variability: Moderate 6-25 bpm (Lilly Azul, RN) Accelerations: None (Lilly Azul, RN) Decelerations: Early (Lilly Azul, RN) Datetime: 10/25/2016 07:27 NBP Sys/Serenity/Mean (mmHg): 178 (QS system process) : 118 (QS system process) : 141 (QS system process) Pulse: 110 (QS system process) Dilatation (cm): 10.0 (Monica Nj RN) Effacement (%): 100 (Monica Nj RN) Station: 1 (Monica Nj RN) Exam by: Valeri Nj RN (Monica Nj RN) LaborFlag: Antepartum (QS system process) Datetime: 10/25/2016 07:26 NBP Sys/Serenity/Mean (mmHg): 196 (QS system process) : 119 (QS system process) : 151 (QS system process) Pulse: 118 (QS system process) LaborFlag: Antepartum (QS system process) Datetime: 10/25/2016 07:25 NBP Sys/Serenity/Mean (mmHg): 185 (QS system process) : 109 (QS system process) : 142 (QS system process) Pulse: 111 (QS system process) I/O Interventions: Hopkins Cath Inserted (Monica Nj RN) Patient Care Comments: Patent, draining clear, yellow urine. Stat lock to right inner thigh, bag below level of the bladder. (Monica Nj RN) LaborFlag: Antepartum (QS system process) Datetime: 10/25/2016 07:24 NBP Sys/Serenity/Mean (mmHg): 179 (QS system process) : 108 (QS system process) : 135 (QS system process) Pulse: 117 (QS system process) Patient Care Comments: Pt. supine with left tilt after epidural. (Monica Nj RN) LaborFlag: Antepartum (QS system process) Datetime: 10/25/2016 07:23 NBP Sys/Serenity/Mean (mmHg): 189 (QS system process) : 98 (QS system process) : 130 (QS system process) Pulse: 109 (QS system process) LaborFlag: Antepartum (QS system process) Datetime: 10/25/2016 07:22 NBP Sys/Serenity/Mean (mmHg): 167 (QS system process) : 98 (QS system process) : 123 (QS system process) Pulse: 108 (QS system process) LaborFlag: Antepartum (QS system process) Datetime: 10/25/2016 07:21 NBP Sys/Serenity/Mean (mmHg): 172 (QS system process) : 99 (QS system process) : 130 (QS system process) Pulse: 108 (QS system process) LaborFlag: Antepartum (QS system process) Datetime: 10/25/2016 07:20 NBP Sys/Serenity/Mean (mmHg): 180 (QS system process) : 109 (QS system process) : 138 (QS system process) Pulse: 110 (QS system process) LaborFlag: Antepartum (QS system process) Datetime: 10/25/2016 07:19 NBP Sys/Serenity/Mean (mmHg): 176 (QS system process) : 97 (QS system process) : 128 (QS system process) Pulse: 108 (QS system process) LaborFlag: Antepartum (QS system process) Datetime: 10/25/2016 07:18 NBP Sys/Serenity/Mean (mmHg): 180 (QS system process) : 111 (QS system process) : 137 (QS system process) Pulse: 109 (QS system process) LaborFlag: Antepartum (QS system process) Datetime: 10/25/2016 07:17 NBP Sys/Serenity/Mean (mmHg): 186 (QS system process) : 113 (QS system process) : 140 (QS system process) Pulse: 113 (QS system process) LaborFlag: Antepartum (QS system process) Datetime: 10/25/2016 07:16 NBP Sys/Serenity/Mean (mmHg): 198 (QS system process) : 113 (QS system process) : 146 (QS system process) Pulse: 111 (QS system process) Epidural Procedure Other: Pump Started (Marysol Ring, RN) Anesthesia Level Check: T11 (Marysol Ring, RN) LaborFlag: Antepartum (QS system process) Datetime: 10/25/2016 07:14 NBP Sys/Serenity/Mean (mmHg): 184 (QS system process) : 104 (QS system process) : 136 (QS system process) Pulse: 115 (QS system process) LaborFlag: Antepartum (QS system process) Datetime: 10/25/2016 07:13 NBP Sys/Serenity/Mean (mmHg): 177 (QS system process) : 95 (QS system process) : 128 (QS system process) Pulse: 108 (QS system process) LaborFlag: Antepartum (QS system process) Datetime: 10/25/2016 07:12 NBP Sys/Serenity/Mean (mmHg): 182 (QS system process) : 114 (QS system process) : 141 (QS system process) Pulse: 120 (QS system process) Communication Comments: Report to Valeri Nj RN. Care relinquished at this time. Dr. Lane remains on unit assessing patient for possible magnesium therapy. (Marysol Ring, RN) LaborFlag: Antepartum (QS system process) Datetime: 10/25/2016 07:11 Epidural Procedure: Loading Dose (Marysol Ring, RN) Epidural Procedure: Cath Placed (Marysol Ring, RN) Datetime: 10/25/2016 07:08 Pulse: 122 (QS system process) SpO2 (%): 99 (QS system process) LaborFlag: Antepartum (QS system process) Datetime: 10/25/2016 07:07 Procedure Verify: Correct Patient Identity; Correct Side and Site are Marked; Accurate Procedure Consent Form; Agreement on Procedure to be Done; Correct Patient Position; Relevant Images and Results are Properly Labeled and Displayed; Addressed Need to Administer Antibiotics or Fluids for Irrigation; Safety Precautions Based on Patient History or Medication Use (Marysol Morris, RN) Anesthesia Plans: Epidural (Marysol Morris, RN) Epidural Positioning: Sitting (Marysol Ring, RN) Datetime: 10/25/2016 07:05 Communication Comments: Report received from Anselmo Morris RN. Care assumed. (Monica Nj RN) Datetime: 10/25/2016 07:04 Procedure Verify: Correct Patient Identity; Correct Side and Site are Marked; Accurate Procedure Consent Form; Agreement on Procedure to be Done; Correct Patient Position; Relevant Images and Results are Properly Labeled and Displayed; Addressed Need to Administer Antibiotics or Fluids for Irrigation; Safety Precautions Based on Patient History or Medication Use (Marysol Morris, RN) Anesthesia Plans: Epidural (Marysol Morris RN) Epidural Positioning: Sitting (Marysol Morris, RN) Anesthesia Comments: Dr. Park at bedside for epidural. (Marysol Morris, RN) Datetime: 10/25/2016 07:03 Pulse: 118 (QS system process) SpO2 (%): 99 (QS system process) LaborFlag: Antepartum (QS system process) Datetime: 10/25/2016 07:00 NBP Sys/Serenity/Mean (mmHg): 186 (QS system process) : 115 (QS system process) : 141 (QS system process) Pulse: 115 (QS system process) Monitor Mode: External; Palpation (Yanna Palencia RN) Frequency (min): 2-3 (Yanna Palencia RN) Quality: Moderate to Strong (Yanna Palencia RN) Duration (sec): 40-60 (Yanna Palencia RN) Pattern: Normal: <= 5 Contractions in 10 Minutes (Yanna Palencia RN) Resting Tone (Palpate): Relaxed (Yanna Palencia RN) Monitor Mode: External US (Yanna Palencia RN) FHR Baseline Rate : 155 (Yanna Palencia RN) FHR Baseline Changes: No Baseline Change (Yanna Palencia RN) Variability: Moderate 6-25 bpm (Yanna Palencia RN) Accelerations: 10X10 (Yanna Palencia RN) Decelerations: None (Yanna Palencia RN) LaborFlag: Antepartum (QS system process)
[2016-10-26] MEDS: IBUPROFEN 800 MG TABLET PO SCH ×3 (05:39→21:15)
--- NOTE | 2016-10-26 06:01 | L&D Current Admission ---
Current Admit Datetime Report Generated by CPN: 10/26/2016 06:00 ADMISSION INFORMATION Current Admit Date/Time: 10/25/2016 02:43 (10/25/2016 02:53:Marysol Morris RN) Reason for Admission: Rupture of Membranes (10/25/2016 02:53:Marysol Morris RN) Chief Complaint: Suspected Rupture of Membranes (10/25/2016 02:53:Marysol Morris RN) Medications During : Vitamin (10/25/2016 02:53:Marysol Morris RN) EGA per Dates: 40.2 (10/25/2016 02:53:QS system process) Method of Arrival: Wheelchair (10/25/2016 02:53:Marysol Morris RN) Admitted From: Home (10/25/2016 02:53:Marysol Morris RN) Reason for Induction: Not Applicable (10/25/2016 02:53:Marysol Morris RN) Records Available: Yes (10/25/2016 02:53:Marysol Morris RN) General Admission Information: Reviewed; Updated; Confirmed (10/25/2016 02:53:Marysol Morris RN) General Admission Reviewed By: Anselmo Morris RN (10/25/2016 02:53:Marysol Morris RN) BELONGINGS/ADVANCED DIRECTIVES Other Belongings: See [facility] valuables form (10/25/2016 02:53:Marysol Morris RN) Disposition of Belongings: Kept with Patient (10/25/2016 02:53:Marysol Morris RN) Advance Direct for Healthcare: No, and Wants No Information (10/25/2016 02:53:Marysol Morris RN) Durable Power of Work Car Operator: No (10/25/2016 02:53:Marysol Morris RN) Living Will: No (10/25/2016 02:53:Marysol Morris RN) Organ Donor: Yes (10/25/2016 02:53:Marysol Morris RN) Pt Rights Information Given: Yes (10/25/2016 02:53:Marysol Morris RN) Pt Understands Pt Rights: Yes (10/25/2016 02:53:Marysol Morris RN) LEARNING ASSESSMENT Knowledge Level: Understands L_D Process (10/25/2016 02:53:Marysol Morris RN) Barriers to Learning: None (10/25/2016 02:53:Marysol Morris RN) Learning Readiness: Motivated (10/25/2016 02:53:Marysol Morris RN) Learns Best By: 1 to 1 Instruction; Demonstration (10/25/2016 02:53:Marysol Morris RN) Learning Needs: Labor and Delivery Process (10/25/2016 02:53:Marysol Morris RN) DOMESTIC VIOLANCE SCREENING Dom Viol Threatened/Hurt: No (10/25/2016 02:53:Marysol Morris RN) Hx of Abuse/Neglect past 2yrs: No (10/25/2016 02:53:Marysol Morris RN) Feel Unsafe Going Home: No (10/25/2016 02:53:Marysol Morris RN) Addt'l Observ Indicating Abuse: No (10/25/2016 02:53:Marysol Morris RN) Reason Unable to Complete Screen: N/A, Screen Completed (10/25/2016 02:53:Marysol Morris RN) Considered Personal Harm/Suicide: No (10/25/2016 02:53:Marysol Morris RN) NUTRITIONAL/FUNCTIONAL SCREENING Problem with Appetite >5 Days: No (10/25/2016 02:53:Marysol Morris RN) Chew/Swallow Difficulties: No (10/25/2016 02:53:Marysol Morris RN) Inappropriate Wt Gain/Loss: No (10/25/2016 02:53:Marysol Morris RN) Presence Skin Breakdown/Ulcer: No (10/25/2016 02:53:Marysol Morris RN) Special Diet: No (10/25/2016 02:53:Marysol Morris RN) Pt Requests Life Sciences Manager Visit: No (10/25/2016 02:53:Marysol Morris RN) Hx of Any of the Following?: N/A (10/25/2016 02:53:Marysol Morris RN) New Diagnosis of: N/A (10/25/2016 02:53:Marysol Morris RN) Requires Assist w/Ambulation: No (10/25/2016 02:53:Marysol Morris RN) Uses Assist Device to Ambulate: No (10/25/2016 02:53:Marysol Morris RN) Pt Requires Help w/ADL's: No (10/25/2016 02:53:Marysol Morris RN)
--- NOTE | 2016-10-26 06:01 | L&D General Admission ---
General Admit Datetime Report Generated by CPN: 10/26/2016 06:00 INFORMATION Patient Age: 26 (10/25/2016 01:46:QS system process) EDC: 10/23/2016 00:00 (10/25/2016 02:03:Marysol Morris RN) : 3 (10/25/2016 02:03:Marysol Morris RN) Para: 2 (10/25/2016 02:03:Marysol Morris RN) Term: 2 (10/25/2016 02:03:Marysol Morris RN) : 0 (10/25/2016 02:03:Marysol Morris RN) Spontaneous Abortions: 0 (10/25/2016 02:03:Marysol Morris RN) Induced Abortions: 0 (10/25/2016 02:03:Marysol Morris RN) Livin (10/25/2016 02:03:Marysol Morris RN) Cesareans: 0 (10/25/2016 02:03:Marysol Morris RN) VBACs: 0 (10/25/2016 02:03:Marysol Morris RN) Ectopic: 0 (10/25/2016 02:03:Marysol Morris RN) Multiple Births: 0 (10/25/2016 02:03:Marysol Morris RN) Baby, Number in Womb: 1 (10/25/2016 02:03:Marysol Morris RN) CARE Primary Shoe Laster: Other-Annotate (10/25/2016 02:03:Marysol Morris RN) Shoe Laster Other: [facility] for one visit (10/25/2016 02:03:Marysol Morris RN) Month of 1st Visit: 05/2016 (10/25/2016 02:03:Marysol Morris RN) Adequate Care: No (10/25/2016 02:03:Marysol Morris RN) Height (in): 63 (10/25/2016 11:02:QS system process) ALLERGIES Medication Allergy: No (10/25/2016 02:03:Marysol Morris RN) Medication Allergies: latex (10/25/2016) (10/25/2016 02:52:QS system process) Latex Allergy: Latex Allergies (10/25/2016 02:03:Marysol Ring, RN) Food Allergies: None (10/25/2016 02:03:Marysol Ring, RN) Environmental Allergies: None (10/25/2016 02:03:Marysol Ring, RN) COMMUNICATION Primary Language: Uzbek (10/25/2016 02:03:Marysol Morris RN) Medical Tx Preferred Language: Uzbek (10/25/2016 02:03:Marysol Ring, RN) Communication Barrier(s): None (10/25/2016 02:03:Marysol Ring, RN) DEMOGRAPHICS Address: [address] [place] [address] [place], [address] [place] [address] (10/25/2016 01:46:QS system process) Zipcode: [id number] (10/25/2016 01:46:QS system process) Home (10/25/2016 01:46:QS system process) SSN: [id number] (10/25/2016 01:46:QS system process) Next of Kin Name: JEAN ROSARIO (10/25/2016 01:46:QS system process) Next of Kin (10/25/2016 01:46:QS system process) Next of Kin Relationship: OR (10/25/2016 01:46:QS system process) Date of : 1990 (10/25/2016 01:46:QS system process) Marital Status: Single (10/25/2016 01:46:QS system process) Sex: Female (10/25/2016 01:46:QS system process) Race: (10/25/2016 01:46:QS system process) Ethnicity: Non- or (10/25/2016 01:46:QS system process) Catholic: None (10/25/2016 01:46:QS system process) DRUG AND ALCOHOL USE Alcohol: No (10/25/2016 02:03:Marysol Morris RN) Cigarettes: Never Smoker. [id number] (10/25/2016 02:03:Marysol Ring, RN) Marijuana: No (10/25/2016 02:03:Marysol Ring RN) Cocaine: No (10/25/2016 02:03:Marysol Ring RN) Other Illicit Drugs: No (10/25/2016 02:03:Marysol Ring, RN) VACCINE HISTORY Influenza Vaccine: No (10/25/2016 02:03:Marysol Morris RN) Pneumococcal Vaccine: No (10/25/2016 02:03:Marysol Morris RN) Tetanus Vaccine: No (10/25/2016 02:03:Marysol Morris RN) Tdap Vaccine: No (10/25/2016 02:03:Marysol Morris RN) Hepatitis B Vaccine: Uncertain (10/25/2016 02:03:Marysol Morris RN) Strap Maker: [facility] (10/25/2016 02:03:Marysol Morris RN) Feeding Preference: Breast (10/25/2016 02:03:Marysol Morris RN) Benefit of Breast Feed Discussed: Yes (10/25/2016 02:03:Marysol Morris RN) Circumcision: N/A (10/25/2016 02:03:Marysol Morris RN) Classes Attended: No (10/25/2016 02:03:Marysol Morris RN) Tubal Ligation: No (10/25/2016 02:03:Marysol Morris RN) Tubal Authorization Signed: N/A (10/25/2016 02:03:Marysol Morris RN) Consent: N/A (10/25/2016 02:03:Marysol Morris RN) Consent Signed: N/A (10/25/2016 02:03:Marysol Morris RN) Pain Management Plans: Epidural (10/25/2016 02:03:Marysol Morris RN) Plans for Labor and Delivery: None (10/25/2016 02:03:Marysol Morris RN) Support Person: Jean Gama10/25/2016 02:03:Marysol Morris RN) Support Person Relationship: (10/25/2016 02:03:Marysol Morris RN) Cultural/Spritual Practice: No (10/25/2016 02:03:Marysol Morris RN) Spir/Cult Dietary Needs: No (10/25/2016 02:03:Marysol Morris RN) LIVING SITUATION/DISCHARGE PLAN Living Arrangements: Apartment (10/25/2016 02:03:Marysol Morris RN) Adequate Access to:: Electric; Heat; Refrigeration; Plumbing/Running water; Phone; Transportation (10/25/2016 02:03:Marysol Morris RN) WIC Program: Needs referral (10/25/2016 02:03:Marysol Morris RN) Discharge Dog Breeder Person: Jean (10/25/2016 02:03:Marysol Morris RN) Person to Help after Discharge: Jean (10/25/2016 02:03:Marysol Morris RN) Currently Using Commun Resources: No (10/25/2016 02:03:Marysol Morris RN) Outside Agency/Structural Welder: N/A (10/25/2016 02:03:Marysol Morris RN) Car Seat for Discharge: Yes (10/25/2016 02:03:Marysol Morris RN) Adoption Requested: No (10/25/2016 02:03:Marysol Morris RN) Pt Contact w/infant Post : N/A (10/25/2016 02:03:Marysol Morris RN) LABS Blood Type: B Positive (10/25/2016 02:03:Yanna Palencia RN) Antibody Screen: negative (10/25/2016 02:03:Yanna Palencia RN) Hemoglobin: 9.7 L (10/25/2016 03:06:QS system process) Hematocrit: 30.4 L (10/25/2016 03:06:QS system process) MCV: 75 L (10/25/2016 03:06:QS system process) Group Beta Strep: unnown (10/25/2016 02:03:Lilly Liang RN) RPR/VDRL: Nonreactive (10/25/2016 02:03:Yanna Palencia RN) Hepatitis B: Positive (10/25/2016 02:03:Yanna Palencia RN) Rubella: Immune (10/25/2016 02:03:Yanna Palencia RN) OB/PREVIOUS HISTORY Previous Procedures: Ultrasound (10/25/2016 02:03:Marysol Morris RN) Current Procedures: Ultrasound (10/25/2016 02:03:Marysol Morris RN) History of Previous : No (10/25/2016 02:03:Marysol Morris RN) History of Gestational Diabetes: No (10/25/2016 02:03:Marysol Morris RN) History of PIH: No (10/25/2016 02:03:Marysol Morris RN) History of Incompetent Cervix: No (10/25/2016 02:03:Marysol Morris RN) History of Placenta Previa/Abrup: No (10/25/2016 02:03:Marysol Morris RN) History of Macrosomia: No (10/25/2016 02:03:Marysol Morris RN) History of IUGR: No (10/25/2016 02:03:Marysol Morris RN) History of Hemorrhage: No (10/25/2016 02:03:Marysol Morris RN) History of Loss/Stillborn: No (10/25/2016 02:03:Marysol Morris RN) History of : No (10/25/2016 02:03:Marysol Morris RN) History of D (Rh) Sensitization: No (10/25/2016 02:03:Marysol Morris RN) History Recurrent Loss/Stillborn: No (10/25/2016 02:03:Marysol Morris RN) History Depression/PP Depression: No (10/25/2016 02:03:Marysol Morris RN) History of Uterine Anomaly/COCO: No (10/25/2016 02:03:Marysol Morris RN) History of Infertility: No (10/25/2016 02:03:Marysol Morris RN) History of ART Treatment: No (10/25/2016 02:03:Marysol Morris RN) History of COCO: No (10/25/2016 02:03:Marysol Morris RN) Comments Obstetrical History: G1: 02/2012; girl 6# 8 oz at 38 weeks G2: 03/2014; boy 6#12 oz at 38 weeks G3: current (10/25/2016 02:03:Marysol Morris RN) MEDICAL HISTORY Med Hx Diabetes: No (10/25/2016 02:03:Marysol Morris RN) Med Hx Hypertension: No (10/25/2016 02:03:Marysol Morris RN) Med Hx Heart Disease: No (10/25/2016 02:03:Marysol Morris RN) Med Hx Autoimmune Disorder: No (10/25/2016 02:03:Mayrsol Morris RN) Med Hx Kidney Disease/UTI: No (10/25/2016 02:03:Marysol Morris RN) Med Hx Neurologic/Epilepsy: No (10/25/2016 02:03:Marysol Morris RN) Med Hx Psychiatric Disorders: Yes (10/25/2016 02:03:Marysol Morris RN) Med Hx Hepatitis/Liver Disease: No (10/25/2016 02:03:Marysol Morris RN) Med Hx Varicosities/Phlebitis: No (10/25/2016 02:03:Marysol Morris RN) Med Hx Thyroid Dysfunction: No (10/25/2016 02:03:Marysol Morris RN) Med Hx Trauma/Violence: No (10/25/2016 02:03:Marysol Morris RN) Med Hx Blood Transfusion: No (10/25/2016 02:03:Marysol Morris RN) Med Hx Pulmonary (Asthma,TB): No (10/25/2016 02:03:Marysol Morris RN) Med Hx Breast: No (10/25/2016 02:03:Marysol Morris RN) Med Hx SLURRY CONTROL TENDER Surgery: No (10/25/2016 02:03:Marysol Morris RN) Med Hx Hospitalization/Surgery: Yes (10/25/2016 02:03:Marysol Morris RN) Med Hx Anesthetic Complications: No (10/25/2016 02:03:Marysol Morris RN) Med Hx Abnormal Pap Smear: No (10/25/2016 02:03:Marysol Morris RN) Other Medical Diseases: No (10/25/2016 02:03:Marysol Morris RN) Med Hx Significant Family Hx: No (10/25/2016 02:03:Marysol Morris RN) Details of Med/Surg Hx: Hospitalized for of children; adenoidectomy in 2003 (10/25/2016 02:03:Marysol RingJANICE) INFECTIOUS HISTORY Inf Hx Gonorrhea: No (10/25/2016 02:03:Marysol Morris RN) Inf Hx Chlamydia: No (10/25/2016 02:03:Marysol Morris RN) Inf Hx Syphilis: No (10/25/2016 02:03:Marysol Morris RN) Inf Hx HIV/AIDS: No (10/25/2016 02:03:Marysol Morris RN) Inf Hx Human Papilloma Virus: No (10/25/2016 02:03:Marysol Morris RN) Inf Hx Pt/Partner Genital Herpes: No (10/25/2016 02:03:Marysol Morris RN) Inf Hx Tuberculosis/Exposure: No (10/25/2016 02:03:Marysol Morris RN) Inf Hx Hepatitis B,C: No (10/25/2016 02:03:Marysol Morris RN) Inf Hx Rash or Viral Illness: No (10/25/2016 02:03:Marysol Ring, RN) GENETIC HISTORY Gen Hx Age >=35 at PHANI: No (10/25/2016 02:03:Marysol Morris RN) Gen Hx Thalassemia: No (10/25/2016 02:03:Marysol Morris RN) Gen Hx Congenital Heart Defect: No (10/25/2016 02:03:Marysol Morris RN) Gen Hx Neural Tube Defect: No (10/25/2016 02:03:Marysol Morris RN) Gen Hx Down's Syndrome: No (10/25/2016 02:03:Marysol Morris RN) Gen Hx Miguel Angel-Sachs: No (10/25/2016 02:03:Marysol Morris RN) Gen Hx Devon: No (10/25/2016 02:03:Marysol Morris RN) Gen Hx Familial Dysautonomia: No (10/25/2016 02:03:Marysol Morris RN) Gen Hx Sickle Cell Disease/Trait: No (10/25/2016 02:03:Marysol Morris RN) Gen Hx Hemophilia/Blood Disorder: No (10/25/2016 02:03:Marysol Morris RN) Gen Hx Muscular Dystrophy: No (10/25/2016 02:03:Marysol Morris RN) Gen Hx Cystic Fibrosis: No (10/25/2016 02:03:Marysol Morris RN) Gen Hx Huntingtons Chorea: No (10/25/2016 02:03:Marysol Morris RN) Gen Hx Mental Retardation/Autism: No (10/25/2016 02:03:Marysol Morris RN) Gen Hx Tested for Fragile X: No (10/25/2016 02:03:Marysol Morris RN) Gen Hx Other Inher/Chromosomal: No (10/25/2016 02:03:Marysol Morris RN) Gen Hx Maternal Metabolic DO: No (10/25/2016 02:03:Marysol Morris RN) Gen Hx Pt Father or FOB Defect: No (10/25/2016 02:03:Marysol Morris RN) Gen Hx Other Genetic History: No (10/25/2016 02:03:Marysol Morris RN) Gen Hx Drugs/Meds since LMP: Yes (10/25/2016 02:03:Marysol Morris RN) Gen Hx Medications: PNV (10/25/2016 02:03:Marysol Morris RN)
--- NOTE | 2016-10-26 06:15 | L&D Care Plan ---
LD CARE PLANS Datetime Report Generated by CPN: 10/26/2016 06:15 Datetime: 10/25/2016 03:54 Pain State: Risk For (Coty Garcia RN) Related To: Labor and Delivery Process; Surgical Procedure; Complication(s) of (Coty Garcia RN) Goal(s): Patients Pain will be Assessed and Managed; Patient will Verbalize Adequate Relief of Pain or the Ability to [place] with Current Pain (Coty Garcia RN) Interventions: Assess Pain Severity on Scale of 0 (None) to 5 (Severe); Assess Type, Location and Intensity of Pain Each Time Client Reports Discomfort and Notify Provider if Unusal Pain Develops; Encourage Proper Breathing and Relaxation Techniques; Offer Alternatives Such as Repositioning, Calm Environment, Massages, Diversional Activities, Ice Pack, Splinting, and Ambulation; Administer Analgesics as Ordered; Assist with Epidural Placement as Appropriate; Evaluate Therapeutic Effectiveness of Medication and Treatments (Coty Garcia RN) Outcome: Patient will Report Absence or Relief of Pain Consistent with Established Pain Goal (Coty Garcia RN) Status: Ongoing (Coty Garcia RN) Outcome: Patient will have a Decrease in Signs and Symptoms of Discomfort (Coty Garcia RN) Status: Ongoing (Coty Garcia RN) Outcome: Pain will be Controlled During Procedures (Coty Garcia RN) Status: Ongoing (Coty Garcia RN) Anxiety State: Risk For (Coty Garcia RN) Related To: Labor and Delivery Process; Surgical Procedure (Coty Garcia RN) Goal(s): Patient will have Decreased Anxiety and be able to Function at Acceptable Levels (Coty Garcia RN) Interventions: Assess Verbal and Nonverbal Behavioral Indicators of Anxiety; Assist Patient to Identify and Verbalize Symptoms of Anxiety; Identify and Demonstrate Techniques to Control Anxiety; Assist Patient with Coping Mechanisms to Manage Anxiety; Provide Theraputic Touch for the Patient; Explain to Patient, Using a Calm Reassuring Approach and Nonmedical Terms, All Activities, Procedures, and Concerns; Instruct Patient and Family about Post Discharge Care, Limitations, Symptoms to Report and Resources Available (Coty Garcia RN) Outcome: Patient will Identify, Verbalize and Demonstrate Techniques to Control Anxiety (Coty Garcia RN) Status: Ongoing (Coty Garcia RN) Outcome: Patient's Posture, Facial Expressions, Gestures and Activity Level will Reflect Decreased Anxiety (Coty Garcia RN) Status: Ongoing (Coty Garcia RN) Outcome: Patient will Verbalize a Sense of Control and/or Acceptance of the Situation (Coty Garcia RN) Status: Ongoing (Coty Garcia RN) Outcome: Patient will Identify and Utilize Support Person (Coty Garcia RN) Status: Ongoing (Coty Garcia RN) Knowledge Deficit State: Risk For (Coty Garcia RN) Related To: Labor and Delivery Process; Surgical Procedures (Coty Garcia RN) Goal(s): Patient will Accurately Verbalize Understanding of Plan of Care and Treatment; Patient and Family will Accurately Verbalize Understanding of the Disease Process (Coty Garcia RN) Interventions: Assess Motivation and Willingness of Patient/Family to Learn; Assess Preferred Learning Mode: One to One Instruction, Reading, Videos, Group Discussion or Demonstration; Assess Barriers to Learning: Pain, Emotional State, Language Barrier, Cognitive Impairment, Visual or Hearing Deficits; Assess Patient and Family Knowledge of Disease Process, Medications and Treatment; Discuss Therapy and/or Treatment Options, Describe Rationale Behind Management, Therapy and Treatment Recommendations; Instruct Patient and Family on Signs and Symptoms to Report; Instruct Patient and Family on Medication Effects and Side Effects; Provide Appropriate and Timely Education Using Multiple Techniques; Provide Patient and Family with Support Group Information and Resources; Give Clear and Thorough Explanations and Demonstrations (Coty Garcia RN) Outcome: Patient and Family will Verbalize Understanding of Condition, Treatment and Signs and Symptoms to Report (Coty Garcia RN) Status: Ongoing (Coty Garcia RN) Outcome: Patient will Identify Perceived Learning Needs and Express Motivation to Learn (Coty Garcia RN) Status: Ongoing (Coty Garcia RN) Outcome: Patient will Verbalize Understanding of Desired Content, and/or Performs Desired Skill Prior to Discharge (Coty Garcia RN) Status: Ongoing (Coty Garcia RN) Infection State: Risk For (Coty Garcia RN) Related To: Surgical Procedures; Prolonged Labor or Induction; Premature/Prolonged Rupture of Membranes (Coty Garcia RN) Goal(s): The Patient will be Free of Infection, Vital Signs Stable and Lab Work within Normal Parameters (Coty Garcia RN) Interventions: Instruct and Reinforce Proper Handwashing, Hygiene, and Care Techniques to Patient and Family; Monitor Vital Signs; Monitor Patient for the Following Signs of Infection: Fever, Abdominal Tenderness, Unusual Discharge; Monitor Aminiotic Fluid, Urine and Lochia for Color and Odor; Observe Wounds, Incisions and Invasive Line Sites for Redness, Drainage and Edema; Assess IV Sites per Hospital Policy; Monitor Lab and Test Results and Notify Provider of Abnormal Findings; Assess Nutritional Status and Promote Good Nutrition (Coty Garcia RN) Outcome: Patient will Remain Free of Infection (Coty Garcia RN) Status: Ongoing (Coty Garcia RN) Outcome: Infection will be Recognized Early to Allow for Prompt Treatment (Coty Garcia RN) Status: Ongoing (Coty Garcia RN) Outcome: Patient will have Vital Signs Within Expected Range (Coty Garcia RN) Status: Ongoing (Coty Garcia RN) Fluid Volume State: Risk For (Coty Garcia RN) Related To: Gestational Hypertension; Surgical Procedures; Prolonged Labor or Induction (Coty Garcia RN) Goal(s): Patient will Achieve and Maintain a Balanced Fluid Volume Status; Hemodynamically Stable (Coty Garcia RN) Interventions: Monitor Vital Signs; Auscultate Breath Sounds; Monitor Patient for Skin Turgor, Mucous Membranes, Dry Skin, Weakness, Headaches and Confusion; Provide Oral Fluids as Ordered; Initiate and Maintain Intravenous Fluids as Ordered; Monitor Intake and Output as Indicated Per Patient Status; Accurately Measure Blood Loss; Monitor Lab and Test Results as Obtained and Notify Provider of Abnormal Findings; Monitor Patient's Weight (Coty Garcia RN) Outcome: Patient will have Clear Lung Sounds (Coty Garcia, RN) Status: Ongoing (Coty Garcia RN) Outcome: Patient will have Vital Signs within Expected Range (Coty Garcia, RN) Status: Ongoing (Coty Garcia, RN) Outcome: Urine Output will be within Expected Range (Coty Garcia RN) Status: Ongoing (Coty Garcia RN) Outcome: Patient will have Minimal Generalized or Upper Extremity Edema (Coty Garcia, RN) Status: Ongoing (Coty Garcia, RN) Injury State: Risk For (Coty Garcia RN) Related To: Labor and Delivery Process (Coty Garcia RN) Goal(s): Patient will Remain Free from Injury (Coty Garcia RN) Interventions: Monitoring as per Hospital Protocol; Assess Neurological Status; Perform Risk Assessment of Patients with Induction and ; Perform Fall Risk Assessment and Prevention per Hospital Protocol; Perform DVT Risk Assessment and Prophylaxis per Hospital Protocol; Ensure that Oxygen, Suction, and Resuscitation Medications and Equipment are Readily Available; Confirm Patient ID Prior to Procedure(s) and Medication Administration per Hospital Policy (Coty Garcia RN) Outcome: Successful Fall Risk Prevention (Coty Garcia RN) Status: Ongoing (Coty Garcia RN) Outcome: Patient will Deliver without Adverse Sequela (Coty Garcia RN) Status: Ongoing (Coty Garcia RN) Outcome: Patient's Neurological Status will Remain Stable (Coty Garcia RN) Status: Ongoing (Coty Garcia RN) Impaired Skin Integrity State: Risk For (Coty Garcia RN) Related To: Vaginal Delivery; Surgical Procedures (Coty Garcia RN) Goal(s): Patient will Maintain Optimal Skin Integrity, Free of Breakdown, Injury or Infection (Coty Garcia RN) Interventions: Complete Screening for Pressure Ulcer Risk and Initiate Protocol per Hospital Policy; Monitor Site of Skin Impairment for Color Changes, Redness, Swelling, Warmth, Pain or Other Signs of Infection; Encourage and Assist with Position Changes; Monitor Patient's Mobility Status; Provide Adequate Nutrition and Fluids; Teach Patient Appropriate Hygienic Care; Teach Patient/Family Skin Care Management (Coty Garcia RN) Outcome: Patient will not have Evidence of Injury Such as Skin Breakdown, Scrapes, Cuts, or Bruising (Coty Garcia RN) Status: Ongoing (Coty Garcia RN) Outcome: Patient will Report Any Altered Sensation or Pain at Site of Skin Impairment (Coty Garcia RN) Status: Ongoing (Coty Garcia RN) Outcome: Patients Incisions and Wounds will be without Signs or Symptoms of Infection (Coty Garcia RN) Status: Ongoing (Coty Garcia RN) Outcome: Patient will Demonstrate Understanding of Plan to Heal Skin and Prevent Reinjury and Verbalize Risk Factors (Coty Garcia RN) Status: Ongoing (Coty Garcia RN) Parenting Impaired State: Not Applicable (Coty Garcia, ) Nutrition State: Not Applicable (Coty Garcia, ) Grieving State: Not Applicable (Coty Field, RN) Additional Care Plan State: Not Applicable (Coty Garcia, RN)
[2016-10-26 08:17] LABS: HEMATOCRIT 27.2 % (36.0-47.0); HEMOGLOBIN 8.5 g/dL (12.0-15.5); HGB HCT DIFFERENCE -1.7; MEAN CORPUSCULAR HEMOGLOBIN 23.6 pg (27.0-33.4); MEAN CORPUSCULAR HGB CONC 31.3 g/dL (32.0-36.0); MEAN CORPUSCULAR VOLUME 76 fl (80-97); RED CELL DISTRIBUTION WIDTH 17.3 % (11.5-14.0); WHITE BLOOD COUNT 9.6 10^3/uL (4.0-10.5)
[2016-10-26] MEDS: PRENATAL VITAMIN W-O CA NO5/FE FUMARATE/FA CAPSULE PO SCH (09:21)
[2016-10-26] MEDS: DOCUSATE SODIUM 100 MG CAPSULE PO SCH ×2 (09:21→17:33)
[2016-10-26] MEDS: SENNOSIDES/DOCUSATE 8.6-50 MG 1 EACH TABLET PO SCH (09:22)
[2016-10-26] MEDS: FERROUS SULFATE 325 MG TABLET PO SCH ×2 (09:22→17:33)
--- NOTE | 2016-10-26 10:26 | PDOC PROGRESS REPORT ---
Subjective-OB Subjective: Post Delivery Day: 26 year old. Denies any needs at this time. Had only 1 PN visit-insurance problems. Physical Exam (OB) Vital Signs: Temp Pulse Resp BP Pulse Ox 98.0 F 93 16 134/83 H 100 10/26/16 08:40 10/26/16 08:40 10/26/16 08:40 10/26/16 08:40 10/26/16 08:40 Intake & Output 10/25/16 10/26/16 10/27/16 06:59 06:59 06:59 Weight 76.95 kg - PIH/Pre-Eclampsia DTR's: 2 + Clonus: Negative Headache: Absent Epigastric Pain: No Visual Changes: No - Lochia Lochia Amount: Scant < 10 ml Lochia Color: Rubra/Red - Abdomen Description: Tender, Soft Hernia Present: No Bowel Sounds: Normoactive Flatus Presence: Present Stool: No Fundal Description: Firm, Midline Fundal Height: u/u - u/2 Objective-Diagnostic Laboratory: 10/26/16 07:32 10/25/16 03:06 10/26/16 07:32 WBC 9.6 RBC 3.60 L Hgb 8.5 L Hct 27.2 L MCV 76 L MCH 23.6 L MCHC 31.3 L RDW 17.3 H Plt Count 218
[2016-10-27] MEDS: IBUPROFEN 800 MG TABLET PO SCH ×3 (06:23→21:43)
[2016-10-27] MEDS: FERROUS SULFATE 325 MG TABLET PO SCH ×2 (09:29→17:10)
[2016-10-27] MEDS: PRENATAL VITAMIN W-O CA NO5/FE FUMARATE/FA CAPSULE PO SCH (09:29)
[2016-10-27] MEDS: SENNOSIDES/DOCUSATE 8.6-50 MG 1 EACH TABLET PO SCH (09:29)
[2016-10-27] MEDS: DOCUSATE SODIUM 100 MG CAPSULE PO SCH ×2 (09:29→17:10)
--- NOTE | 2016-10-27 11:42 | PDOC PROGRESS REPORT ---
Subjective-OB Subjective: Post Delivery Day:2 26 year old . Voiding and ambulating without difficulty. Denies any s/s of super imposed Pre-e. Denies any needs at this time Physical Exam (OB) Vital Signs: Temp Pulse Resp BP Pulse Ox 97.8 F 97 18 142/97 H 100 10/27/16 08:24 10/27/16 08:24 10/27/16 08:24 10/27/16 08:24 10/27/16 08:24 - General General Appearance: Appears well In distress: None - PIH/Pre-Eclampsia DTR's: 1 + Clonus: Negative Headache: Absent Epigastric Pain: No Visual Changes: No - Episiotomy/Laceration Site Condition: N/A - Lochia Lochia Amount: Small 10-25 ml Lochia Color: Rubra/Red - Abdomen Description: Soft Hernia Present: Yes Fundal Description: Firm, Midline Fundal Height: u/u - u/2 - Respiratory Respiratory Status: No respiratory distress - Extremities Upper extremity: Normal inspection Lower extremities: Normal inspection - Neurological Cognition: Normal Orientation: AAOx4 - Psychological Associated symptoms: Flat affect Objective-Diagnostic Laboratory: 10/26/16 07:32 10/25/16 03:06 Assessment and Plan(PN) - Assessment and Plan (1) Term Is this a current diagnosis for this admission?: YesPlan: continue stay (2) Vaginal delivery Is this a current diagnosis for this admission?: YesPlan: continue stay (3) Hypertension affecting , delivered, current hospitalization Is this a current diagnosis for this admission?: YesPlan: discussed BPs with Dr. Mccarty, will start procardia 30mg qd and continue stay (4) Insufficient antepartum care Is this a current diagnosis for this admission?: YesPlan: continue stay - Time Spent with Patient Time with patient: 15-25 minutes Medications reviewed and adjusted accordingly: Yes - Disposition Anticipated Discharge: Home Within: within 24 hours
[2016-10-27] MEDS ORDERED: NIFEDIPINE 30 MG TAB.ER.24 PO ONE (14:15)
[2016-10-28] MEDS: IBUPROFEN 800 MG TABLET PO SCH (05:15)
[2016-10-28] MEDS ORDERED: NIFEDIPINE 30 MG TAB.ER.24 PO SCH (10:00)
[2016-10-28] MEDS: FERROUS SULFATE 325 MG TABLET PO SCH (10:08)
[2016-10-28] MEDS: PRENATAL VITAMIN W-O CA NO5/FE FUMARATE/FA CAPSULE PO SCH (10:08)
[2016-10-28] MEDS: SENNOSIDES/DOCUSATE 8.6-50 MG 1 EACH TABLET PO SCH (10:08)
[2016-10-28] MEDS: DOCUSATE SODIUM 100 MG CAPSULE PO SCH (10:08)
--- NOTE | 2016-10-28 11:40 | PDOC DISCHARGE SUMMARY ---
Final Diagnosis Discharge Date: 10/28/16 - Final Diagnosis (1) Delivery normal Is this a current diagnosis for this admission?: Yes (3) Is this a current diagnosis for this admission?: Yes (4) Term Is this a current diagnosis for this admission?: Yes (5) Vaginal delivery Is this a current diagnosis for this admission?: Yes Discharge Data - Discharge Medication Home Medications: Bpi339/FA/Omega3/Dha/Fish Oil [ Gummies] 1 tab PO DAILY 10/25/16 Docusate Sodium [Colace 100 mg Capsule] 100 mg PO BID #60 capsule 10/27/16 Ferrous Sulfate [Feosol 325 mg Tablet] 325 mg PO BID #60 tablet 10/27/16 Ibuprofen [Motrin 800 mg Tablet] 800 mg PO Q8HP PRN #90 tablet 10/27/16 Reason(s) for Admission: Other Procedures: None Intrapartum Procedure(s): Spontaneous Vaginal Delivery - [place] Data Baby 1 Female at 1 minute: 8 at 5 minutes: 9 Weight: 3230 kg Home with Mother: Yes Complications: No - Diagnosis Test Laboratory: Temp Pulse Resp BP Pulse Ox 98.2 F 102 H 16 135/95 H 100 10/28/16 08:41 10/28/16 08:41 10/28/16 08:41 10/28/16 08:41 10/28/16 08:41 10/25/16 10/25/16 10/26/16 02:02 03:06 07:32 RBC 4.06 3.60 L Hgb 9.7 L 8.5 L Hct 30.4 L 27.2 L Urine Opiates Screen NEGATIVE - Discharge information/Instructions Discharge Activity: Activity As Tolerated, Balance Activity w/Rest, No Lifting Over 10 Pounds, Pelvic Rest, Slowly Increase Activity, No tub bath Discharge Diet: Regular Disposition: HOME, SELF-CARE Follow up with: [facility] in: 4
[2016-10-28 12:11] VITALS: BP 148/97
== END 2016-10-28 13:45 | disposition home or self-care (01) | DRG 775 ==
LOC: LC 01:44 → LR 02:37 → 2S 10:18
PROVIDERS: ADMIT Obstetrics & Gynecology; ATTEND Obstetrics & Gynecology
PROC: 10E0XZZ Delivery of Products of Conception, External Approach (ICD-10-PCS; principal; 2016-10-28)
PROC: 4A1HXCZ Monitoring of Products of Conception, Cardiac Rate, External Approach (ICD-10-PCS; 2016-10-28)
PROC: 3E0234Z Introduction of Serum, Toxoid and Vaccine into Muscle, Percutaneous Approach (ICD-10-PCS; 2016-10-28)
PROC: 3E0234Z Introduction of Serum, Toxoid and Vaccine into Muscle, Percutaneous Approach (ICD-10-PCS; 2016-10-28)
DX: O16.4 Unspecified maternal hypertension, complicating childbirth (principal); O77.0 Labor and delivery complicated by meconium in amniotic fluid; O62.3 Precipitate labor; O69.81X0 Labor and delivery complicated by cord around neck, without compression, not applicable or unspecified; Z91.040 Latex allergy status; Z23 Encounter for immunization; Z79.899 Other long term (current) drug therapy; Z3A.40 40 weeks gestation of pregnancy; Z37.0 Single live birth
CPT/HCPCS: 36415; 80053; 80307; 81005; 83615; 84112; 84550; 85025; 85027; 86850; 86900; 86901; 87491; 87591; 88307; 90686; 90715; J2540; J2590; J3475; J3490

== ENCOUNTER 2019-08-21 09:10 | Emergency (ER) | payer SELFPAY ==
[2019-08-21] MEDS ORDERED: METOCLOPRAMIDE HCL ORAL SOLN 10 MG/10 ML UDCUP PO ONE (09:32)
--- NOTE | 2019-08-21 09:32 | ER Document Report ---
ED Medical Screen (RME) - General Chief Complaint: Vomiting Stated Complaint: VOMITING Time Seen by Provider: 08/21/19 09:26 Mode of Arrival: Ambulatory Information source: Patient Notes: 28-year-old female presents to ED for complaint of nausea and vomiting for the last 3 weeks worse for the last week. She is 8 weeks with cramping in the back. She is 4 para 3. She denies smoking drinking or use of drugs. She states her blood pressure was elevated with her last and they did get a blood pressure of 148/111 at the pivot desk her blood pressure is 128/88 in the pit area. Patient is alert oriented respirations regular nonlabored speaking in full sentences. We will get some blood urine and an ultrasound and her seen by another provider. Treat with Reglan p.o. at this time. I have greeted and performed a rapid initial assessment of this patient. A comprehensive ED assessment and evaluation of the patient, analysis of test results and completion of medical decision making process will be conducted by an additional ED providers. TRAVEL OUTSIDE OF THE [place] IN LAST 30 DAYS: No - Related Data Allergies/Adverse Reactions: latex Adverse Reaction (Verified 10/25/16 02:52) Physical Exam - Vital signs Vitals: Temp Pulse Resp BP Pulse Ox 98.4 F 109 H 16 148/111 H 98 08/21/19 09:14 08/21/19 09:14 08/21/19 09:14 08/21/19 09:14 08/21/19 09:14 Course - Vital Signs Vital signs: Temp Pulse Resp BP Pulse Ox 98.4 F 109 H 16 148/111 H 98 08/21/19 09:14 08/21/19 09:14 08/21/19 09:14 08/21/19 09:14 08/21/19 09:14
[2019-08-21 10:06] LABS: ABSOLUTE LYMPHOCYTES (AUTO) 0.7 10^3/uL (0.5-4.7); ABSOLUTE MONOCYTES (AUTO) 0.4 10^3/uL (0.1-1.4); ABSOLUTE NEUT (AUTO) 8.8 10^3/uL (1.7-8.2); BASOPHILS % (AUTO) 0.3 % (0-2); EOSINOPHILS % (AUTO) 0.2 % (0-6); HEMOGLOBIN 14.3 g/dL (12.0-15.5); LYMPHOCYTES % (AUTO) 6.8 % (13-45); MEAN CORPUSCULAR HEMOGLOBIN 27.2 pg (27.0-33.4); MEAN CORPUSCULAR HGB CONC 33.4 g/dL (32.0-36.0); MEAN CORPUSCULAR VOLUME 82 fl (80-97); MONOCYTES % (AUTO) 3.7 % (3-13); PLATELET COUNT 218 10^3/uL (150-450); RED BLOOD COUNT 5.27 10^6/uL (3.72-5.28); TOTAL CELLS COUNTED % (AUTO) 100 %; WHITE BLOOD COUNT 9.9 10^3/uL (4.0-10.5)
[2019-08-21 10:09] LABS: APPEARANCE,URINE CLOUDY; BILIRUBIN,URINE NEGATIVE (NEGATIVE); COLOR,URINE AMBER; GLUCOSE, URINE NEGATIVE (NEGATIVE); KETONES,URINE TRACE mg/dL (NEGATIVE); PROTEIN,URINE 100 mg/dL (NEGATIVE)
[2019-08-21 10:20] LABS: ALBUMIN 4.6 g/dL (3.5-5.0); ALKALINE PHOSPHATASE 93 U/L (38-126); ANION GAP 12 (5-19); ASPARTATE AMINO TRANSFERASE 31 U/L (14-36); BILIRUBIN,DIRECT 0.1 mg/dL (0.0-0.4); BILIRUBIN,TOTAL 0.5 mg/dL (0.2-1.3); BLOOD UREA NITROGEN 9 mg/dL (7-20); CARBON DIOXIDE 26 mmol/L (22-30); CHLORIDE 100 mmol/L (98-107); GLUCOSE 96 mg/dL (75-110); POTASSIUM 4.1 mmol/L (3.6-5.0); TOTAL PROTEIN 8.4 g/dL (6.3-8.2)
--- NOTE | 2019-08-21 11:24 | RADIOLOGY REPORT (SQ) ---
EXAM DESCRIPTION: U/S OB TRANSVAGINAL W/O DOP COMPLETED DATE/TIME: 08/21/2019 11:00 am REASON FOR STUDY: nv back pain 8 weeks preg possible twins COMPARISON: None. TECHNIQUE: Transvaginal static and realtime grayscale images acquired of the pelvis. Additional jonatan cted spectral and color Doppler images recorded. All images stored on PACs. bHCG: Pending. CLINICAL DATES: EGA LIMITATIONS: None. FINDINGS: Twin Intra-uterine gestation TYPE OF TWIN: Dichorionic Diamniotic. Two gestation sacs. Two yolk sacs. TWIN A: ULTRASOUND EGA: 7 weeks 5 days ULTRASOUND PHANI: 04/03/2020 EFW: Not applicable. Under 20 weeks. CRL: 1.7 cm GESTATIONAL SAC: Not applicable. FP present. SURVEY: Too early to assess. FHR: 187 bpm. AMNIOTIC FLUID: Adequate amount. PLACENTA: Too early to assess. SUBCHORIONIC BLEED: No. SIZE OF BLEED: Not applicable. TWIN B: ULTRASOUND EGA: 8 weeks 0 days ULTRASOUND PHANI: 04/01/2020 EFW: Not applicable. Under 20 weeks. CRL: 2.0 cm GESTATIONAL SAC: Not applicable. FP present. SURVEY: Too early to assess. FHR: 173 bpm. AMNIOTIC FLUID: Adequate amount. SUBCHORIONIC BLEED: No. SIZE OF BLEED: Not applicable. UTERUS: No masses. No anomalies. CERVICAL LENGTH: 3.0 cm. Closed. RIGHT ADNEXA: Ovary not identified due to poor acoustical window No adnexal free fluid. No adnexal masses. LEFT ADNEXA: Ovary not identified due to poor acoustical window No adnexal free fluid. No adnexal masses. FREE FLUID: None. OTHER: No other significant finding. IMPRESSION: LIVING TWIN INTRAUTERINE TWIN A EGA: 7 weeks 5 days. TWIN B EGA: 8 weeks 0 days. Trimester of : First trimester - 0 to 13 weeks. TECHNICAL DOCUMENTATION: JOB ID: [id number]- All Rights Reserved rev-02/12 Reading location - IP/workstation name: [email or web address]
[2019-08-21] MEDS ORDERED: DEXTROSE 5%-LACTATED RINGERS 1,000 ML IV ONE ×2 (11:46→12:50)
--- NOTE | 2019-08-21 11:54 | ER Document Report ---
ED GI/ - General Chief Complaint: Vomiting Stated Complaint: VOMITING Time Seen by Provider: 08/21/19 09:26 Mode of Arrival: Ambulatory Information source: Patient Notes: This 28-year-old female patient comes emergency room complaining of nausea vomiting for the past 2 weeks that is gotten worse in the last few days. She is approximately 8 weeks , G4, P3 and thinks she may have twins. She reports that the vomiting has become bilious in the last 1 to 2 days. There is no diarrhea. She is known to be blood type B+. Her blood pressure was elevated today, she reports she has been off her Norvasc since June when she ran out. She was on blood pressure medicine since her last childbirth because her blood pressure remained elevated. TRAVEL OUTSIDE OF THE [place] IN LAST 30 DAYS: No - Related Data Allergies/Adverse Reactions: latex Adverse Reaction (Verified 10/25/16 02:52) Past Medical History - General Information source: Patient - Social History Smoking Status: Never Smoker Cigarette use (# per day): No Chew tobacco use (# tins/day): No Smoking Education Provided: No Frequency of alcohol use: None Drug Abuse: None Lives with: Family Family History: Hypertension Patient has suicidal ideation: No Patient has homicidal ideation: No - Past Medical History Cardiac Medical History: Reports: Hx Hypertension Past Surgical History: Reports: Hx Adenoidectomy Review of Systems - Review of Systems Constitutional: No symptoms reported Cardiovascular: No symptoms reported Respiratory: No symptoms reported Gastrointestinal: See HPI Genitourinary: No symptoms reported Female Genitourinary: - Approximately 8 weeks with twins Musculoskeletal: No symptoms reported Skin: No symptoms reported Hematologic/Lymphatic: No symptoms reported Neurological/Psychological: No symptoms reported Physical Exam - Vital signs Vitals: Temp Pulse Resp BP Pulse Ox 98.4 F 109 H 16 148/111 H 98 08/21/19 09:14 08/21/19 09:14 08/21/19 09:14 08/21/19 09:14 08/21/19 09:14 Interpretation: Hypertensive, Tachycardic - General General appearance: Appears well, Alert In distress: None - The patient received Reglan earlier, she states her nausea is well controlled at this time. - HEENT Head: Normocephalic, Atraumatic Eyes: Normal Pupils: PERRL Neck: Normal - Respiratory Respiratory status: No respiratory distress Breath sounds: Normal - Cardiovascular Rhythm: Regular Heart sounds: Normal auscultation Murmur: No - Abdominal Inspection: Normal Bowel sounds: Normal Tenderness: Nontender - Back Back: Normal - Extremities General upper extremity: Normal inspection General lower extremity: Normal inspection - Neurological Neuro grossly intact: Yes - Psychological Associated symptoms: Normal affect, Normal mood - Skin Skin Temperature: Warm Skin Moisture: Dry Skin Color: Normal Course - Re-evaluation Re-evalutation: 08/21/19 14:39 Patient reports her nauseousness remains gone and she has been eating some. - Vital Signs Vital signs: Temp Pulse Resp BP Pulse Ox 98.4 F 109 H 16 128/88 H 98 08/21/19 09:14 08/21/19 09:14 08/21/19 09:14 08/21/19 09:31 08/21/19 09:14 - Laboratory Result Diagrams: 08/21/19 09:50 08/21/19 09:50 Laboratory results interpreted by me: 08/21/19 08/21/19 08/21/19 09:50 09:50 09:50 RDW 16.0 H Lymph % (Auto) 6.8 L Absolute Neuts (auto) 8.8 H Seg Neutrophils % 89.0 H Total Protein 8.4 H Beta HCG, Quant 021063.00 H Urine Protein 100 H Urine Ketones TRACE H Urine Urobilinogen 2.0 H Leukocyte Esterase Rfl MODERATE H Urine Ascorbic Acid 40 H - Diagnostic Test Radiology reviewed: Reports reviewed - Ultrasound shows twin pregnancies diamniotic dichorionic. Discharge - Discharge Clinical Impression: Hyperemesis gravidarum, Urinary tract infection affecting care of mother in first trimester, antepartum, Dehydration Twin Qualifiers: Multiple gestation type: dichorionic and diamniotic Trimester: first trimester Qualified Code(s): O30.041 - Twin , dichorionic/diamniotic, first trimester Condition: Stable Disposition: HOME, SELF-CARE Additional Instructions: Hyperemesis Gravidarum Hyperemesis gravidarum is the medical term for severe vomiting during . We don't know exactly why it occurs, but it's a common problem. Dehydration can occur. This reduces blood flow to the placenta, decreasing the baby's nourishment. The baby will also become dehydrated. There can be harmful changes in blood sodium, potassium, or acid balance. Our goal is to correct, and prevent, dehydration. For severe cases, we give IV fluids. Antinausea medication will be prescribed. (Don't be concerned about " defects" -- the risk to you and your baby from the hyperemesis is the biggest problem. The antinausea medication is very safe at this stage of .) Call the doctor if you have vaginal bleeding, abdominal pain, severe lightheadedness or weakness, or other alarming symptoms. Urinary Tract Infection Your evaluation suggests that you have a urinary tract infection. This is due to germs growing in the bladder. This is a common problem. This infection usually responds quickly to antibiotics. Your antibiotic should be taken exactly as prescribed. Drink plenty of fluids -- three to four quarts a day. Certain urine infections require a culture. If the doctor obtained a culture, the results will be back in two days. You should call to see if a change in treatment is needed. A repeat urinalysis after you finish treatment is often recommended. The physician will let you know if further testing is required. Call the doctor if you develop fever, chills, flank pain, inability to urinate, or blood in the urine. Take the medications as prescribed. Drink plenty of fluids throughout the day in the evening. Follow-up with [facility] or your DELIVERY ROOM SUPERVISOR doctor this week for recheck. RETURN TO THE EMERGENCY ROOM IF ANY NEW OR WORSENING SYMPTOMS. Prescriptions: Cephalexin Monohydrate [Keflex 250 mg Capsule] 250 mg PO QID #20 cap Metoclopramide HCl [Reglan 10 mg Tablet] 1 tab PO ASDIR PRN #20 tablet PRN Reason:
[2019-08-21] MEDS ORDERED: NORMAL SALINE 1000 ML 1,000 ML IV ONE (12:11)
[2019-08-21] MEDS ORDERED: CEFTRIAXONE 1 GM/D5W RTU 1 GM/50 ML RTUPB IV ONE (12:51)
[2019-08-21 15:19] VITALS: BP 146/94
== END 2019-08-21 15:19 | disposition home or self-care (01) ==
LOC: ER 09:10
DX: O21.1 Hyperemesis gravidarum with metabolic disturbance (principal); O23.41 Unspecified infection of urinary tract in pregnancy, first trimester; O30.041 Twin pregnancy, dichorionic/diamniotic, first trimester; O16.1 Unspecified maternal hypertension, first trimester; O26.891 Other specified pregnancy related conditions, first trimester; R00.0 Tachycardia, unspecified; Z3A.00 Weeks of gestation of pregnancy not specified
CPT/HCPCS: 99284; 96361; 96365; 36415; 87086; 84702; 85025; 80053; 81001; 76817; J7121; J7030; J0696

== ENCOUNTER 2019-09-11 12:50 | Emergency (ER) | payer SELFPAY ==
--- NOTE | 2019-09-11 13:34 | ER Document Report ---
ED Medical Screen (RME) - General Chief Complaint: Shortness Of Breath Stated Complaint: TROUBLE BREATHING/DIZZY Time Seen by Provider: 09/11/19 13:22 TRAVEL OUTSIDE OF THE [place] IN LAST 30 DAYS: No - HPI Notes: 09/11/19 13:31 28 year old female 11 weeks to the ED with C/O progressively worsening SOB for the past week. States that when she stands for long periods of time or if she exerts herself alot, she feels SOB. Denies chest pain. States that her legs do hurt her, but they switch from one leg to another. Denies leg swelling. Never had to be on a blood thinner in . She has had a confirmed IUP with this but she has not established care with an OBGYN. Of note for her last she did not have any care. She does not use drugs, specifically no cocaine. States that she thinks she has preeclampsia with the last because her blood pressure was high, but OBGYN was not completely sure because of her lack of care. She does not have a known history of HTN. I have performed a medical screening exam on the patient and determined she will need further management by mainside provider. I have placed initial orders to help expedite her care. - Related Data Allergies/Adverse Reactions: latex Adverse Reaction (Verified 09/11/19 13:23) Past Medical History - Social History Chew tobacco use (# tins/day): No Frequency of alcohol use: None Drug Abuse: None - Past Medical History Cardiac Medical History: Reports: Hx Hypertension Past Surgical History: Reports: Hx Adenoidectomy Physical Exam - Vital signs Vitals: Temp Pulse Resp BP Pulse Ox 98.8 F 106 H 20 152/122 H 100 09/11/19 13:19 09/11/19 13:19 09/11/19 13:19 09/11/19 13:19 09/11/19 13:19 Course - Vital Signs Vital signs: Temp Pulse Resp BP Pulse Ox 98.8 F 106 H 20 152/122 H 100 09/11/19 13:23 09/11/19 13:23 09/11/19 13:23 09/11/19 13:23 09/11/19 13:23
--- NOTE | 2019-09-11 15:17 | RADIOLOGY REPORT (SQ) ---
EXAM DESCRIPTION: CHEST 2 VIEWS COMPLETED DATE/TIME: 09/11/2019 2:33 pm REASON FOR STUDY: SOB COMPARISON: None. TECHNIQUE: Frontal and lateral radiographic views of the chest acquired. NUMBER OF VIEWS: Two view. LIMITATIONS: None. FINDINGS: LUNGS AND PLEURA: No opacities, masses or pneumothorax. No pleural effusion. MEDIASTINUM AND HILAR STRUCTURES: No masses or contour abnormalities. HEART AND VASCULAR STRUCTURES: Heart normal size. No evidence for failure. BONES: No acute findings. HARDWARE: None in the chest. OTHER: No other significant finding. IMPRESSION: NO SIGNIFICANT RADIOGRAPHIC FINDING IN THE CHEST. TECHNICAL DOCUMENTATION: JOB ID: [id number] [employer]- All Rights Reserved Reading location - IP/workstation name: [email or web address]
[2019-09-11 15:21] LABS: ABSOLUTE MONOCYTES (AUTO) 0.4 10^3/uL (0.1-1.4); ABSOLUTE NEUT (AUTO) 6.1 10^3/uL (1.7-8.2); BASOPHILS % (AUTO) 0.4 % (0-2); EOSINOPHILS % (AUTO) 0.1 % (0-6); HEMATOCRIT 40.4 % (36.0-47.0); HEMOGLOBIN 13.5 g/dL (12.0-15.5); LYMPHOCYTES % (AUTO) 13.9 % (13-45); MEAN CORPUSCULAR HEMOGLOBIN 27.5 pg (27.0-33.4); MEAN CORPUSCULAR HGB CONC 33.5 g/dL (32.0-36.0); MEAN CORPUSCULAR VOLUME 82 fl (80-97); PLATELET COUNT 213 10^3/uL (150-450); RED BLOOD COUNT 4.92 10^6/uL (3.72-5.28); RED CELL DISTRIBUTION WIDTH 15.5 % (11.5-14.0); SEGMENTED NEUTROPHILS % (AUTO) 80.6 % (42-78); TOTAL CELLS COUNTED % (AUTO) 100 %; WHITE BLOOD COUNT 7.5 10^3/uL (4.0-10.5)
[2019-09-11 15:25] LABS: APPEARANCE,URINE SLIGHTLY-CLOUDY; BILIRUBIN,URINE NEGATIVE (NEGATIVE); COLOR,URINE YELLOW; GLUCOSE, URINE NEGATIVE (NEGATIVE); KETONES,URINE TRACE mg/dL (NEGATIVE); LEUKOCYTE ESTERASE,URINE LARGE (NEGATIVE); NITRITE,URINE NEGATIVE (NEGATIVE); PROTEIN,URINE 30 mg/dL (NEGATIVE); URINE SPECIFIC GRAVITY 1.017; UROBILINOGEN,URINE NEGATIVE mg/dL (<2.0)
[2019-09-11 15:46] LABS: ALBUMIN 4.1 g/dL (3.5-5.0); ALKALINE PHOSPHATASE 71 U/L (38-126); ANION GAP 10 (5-19); ASPARTATE AMINO TRANSFERASE 16 U/L (14-36); BILIRUBIN,DIRECT 0.1 mg/dL (0.0-0.4); BILIRUBIN,TOTAL 0.4 mg/dL (0.2-1.3); BLOOD UREA NITROGEN 4 mg/dL (7-20); CALCIUM 9.6 mg/dL (8.4-10.2); CARBON DIOXIDE 26 mmol/L (22-30); CHLORIDE 98 mmol/L (98-107); GLUCOSE 84 mg/dL (75-110); POTASSIUM 4.9 mmol/L (3.6-5.0); TOTAL PROTEIN 7.3 g/dL (6.3-8.2)
--- NOTE | 2019-09-11 15:46 | EKG REPORT ---
SEVERITY:- NORMAL ECG - SINUS RHYTHM : Confirmed by: Eugenio Hinds MD 11-Sep-2019 15:45:00
[2019-09-11] MEDS ORDERED: CEFTRIAXONE 1 GM/D5W RTU 1 GM/50 ML RTUPB IV ONE (18:37)
--- NOTE | 2019-09-11 19:11 | ER Document Report ---
ED Respiratory Problem - General Mode of Arrival: Ambulatory Information source: Patient TRAVEL OUTSIDE OF THE [place] IN LAST 30 DAYS: No - HPI Patient complains to provider of: No: Cough Onset: Last week Duration: Continuous Quality of pain: Pressure Pain Level: 2 Context: . denies: Recent immobilization, Smoker Chest pain/discomfort: Center Associated symptoms: Chest pain/discomfort, Short of breath. denies: Anxiety, Chills, Cough, Wheezing Similar symptoms previously: No Recently seen / treated by doctor: No <ANTHONY MCMULLEN - Last Filed: 09/11/19 20:09> <KANIKA SYED - Last Filed: 09/12/19 00:34> - General Chief Complaint: Shortness Of Breath Stated Complaint: TROUBLE BREATHING/DIZZY Time Seen by Provider: 09/11/19 13:22 Notes: Patient is a currently 11 weeks G4, P3 with a twin gestation. Patient has not started any care. Patient states that she has had nausea shortness of breath for the past week and had pressure in her chest. Patient states that shortness of breath has worsened today which prompted her visit. Patient states she felt faint yesterday. Patient denies any cough or cold symptoms. Patient does have a history of hypertension and had previously been on Norvasc. Patient states that she ran out of her medicine about 3 months ago and did not restart it when she found out she was as she did not think it would be safe during . Patient also feels as though she has had some dysuria symptoms and is concerned about a UTI. (ANTHONY MCMULLEN) - Related Data Allergies/Adverse Reactions: latex Adverse Reaction (Verified 09/11/19 13:23) Past Medical History - General Information source: Patient - Social History Smoking Status: Never Smoker Chew tobacco use (# tins/day): No Frequency of alcohol use: None Drug Abuse: None Occupation: Foodservice Lives with: Family Family History: Hypertension Patient has suicidal ideation: No Patient has homicidal ideation: No - Past Medical History Cardiac Medical History: Reports: Hx Hypertension Past Surgical History: Reports: Hx Adenoidectomy <ANTHONY MCMULLEN - Last Filed: 09/11/19 20:09> Review of Systems - Review of Systems Constitutional: No symptoms reported. denies: Fever, Recent illness EENT: No symptoms reported Cardiovascular: Chest pain. denies: Dizziness Respiratory: Short of breath. denies: Cough Gastrointestinal: Nausea. denies: Abdominal pain, Vomiting Genitourinary: No symptoms reported Female Genitourinary: No symptoms reported Musculoskeletal: Other - Leg pain occasionally at night currently resolved. denies: Back pain, Leg swelling Skin: No symptoms reported Hematologic/Lymphatic: No symptoms reported Neurological/Psychological: No symptoms reported <ANTHONY MCMULLEN - Last Filed: 09/11/19 20:09> Physical Exam - General General appearance: Appears well, Alert In distress: None - HEENT Head: Normocephalic, Atraumatic Eyes: Normal Conjunctiva: Normal Nasal: Normal Mouth/Lips: Normal Mucous membranes: Normal Neck: Normal, Supple. No: Lymphadenopathy - Respiratory Respiratory status: No respiratory distress Chest status: Nontender Breath sounds: Normal Chest palpation: Normal - Cardiovascular Rhythm: Tachycardia Heart sounds: S1 appreciated, S2 appreciated Murmur: No - Abdominal Inspection: Normal Distension: No distension Bowel sounds: Normal Tenderness: Nontender - Back Back: Normal, Nontender. No: CVA tenderness - Extremities General upper extremity: Normal inspection, Normal strength General lower extremity: Normal inspection, Normal strength - Neurological Neuro grossly intact: Yes Cognition: Normal Arielle Coma Scale Eye Opening: Spontaneous Arielle Coma Scale Verbal: Oriented Dietrich Coma Scale Motor: Obeys Commands Dietrich Coma Scale Total: 15 - Psychological Associated symptoms: Normal affect, Normal mood - Skin Skin Temperature: Warm Skin Moisture: Dry Skin Color: Normal <ANTHONY MCMULLEN - Last Filed: 09/11/19 20:09> - Vital signs Vitals: Temp Pulse Resp BP Pulse Ox 98.8 F 106 H 20 152/122 H 100 09/11/19 13:19 09/11/19 13:19 09/11/19 13:19 09/11/19 13:19 09/11/19 13:19 Course - Laboratory Result Diagrams: 09/11/19 15:00 09/11/19 15:00 <KEMIANTHONY - Last Filed: 09/11/19 20:09> - Laboratory Result Diagrams: 09/11/19 15:00 09/11/19 15:00 <KANIKA SYED - Last Filed: 09/12/19 00:34> - Re-evaluation Re-evalutation: 09/11/19 19:00 RN Indira states that pharmacy tech was concerned that a d-dimer had not been ordered, and was consulting with Dr. Bryant about patient's case. I then consulted with Dr. Bryant regarding patient presentation, he advised adding on a d-dimer as well as an ABG to further evaluate patient's dyspnea, chest pain symptoms. 09/11/19 19:45 Dr. Bryant recommends consultation with [facility] once ABG has been resulted. 09/11/19 20:09 Bedside report handoff given to Melchor SUN (ANTHONY MCMULLEN) 09/11/19 21:33 ABG results back. Consulted with SECOND C[facility] Dr. Nunn who recommended CTA chest. 09/12/19 00:33 CTA chest neg. Discussed pt with Dr. Marshall who also evaluated pt. Pt to be discharged home with Macrobid and close follow up with obgyn. Discussed all results with pt and need to follow up closely with obgyn. Strict return precautions given. Pt also given copy of report of CTA chest and chest x- ray. Pt voices understanding and agrees with plan of care. (KANIKA SYED) - Vital Signs Vital signs: Temp Pulse Resp BP Pulse Ox 98.9 F 106 H 16 166/98 H 97 09/11/19 17:33 09/11/19 13:23 09/11/19 23:20 09/11/19 23:01 09/11/19 23:20 - Laboratory Laboratory results interpreted by me: 09/11/19 09/11/19 09/11/19 15:00 15:00 15:00 RDW 15.5 H Seg Neutrophils % 80.6 H D-Dimer ABG pH ABG pO2 ABG HCO3 ABG Total CO2 ABG O2 Saturation Sodium 134.0 L BUN 4 L Creatinine 0.45 L TSH < 0.01 L Urine Protein Urine Ketones Ur Leukocyte Esterase Urine Ascorbic Acid 09/11/19 09/11/19 09/11/19 15:00 15:00 21:08 RDW Seg Neutrophils % D-Dimer 1.53 H ABG pH 7.46 H ABG pO2 52.9 L ABG HCO3 24.6 H ABG Total CO2 25.7 H ABG O2 Saturation 89.4 L Sodium BUN Creatinine TSH Urine Protein 30 H Urine Ketones TRACE H Ur Leukocyte Esterase LARGE H Urine Ascorbic Acid 40 H Discharge <KEMI,ANTHONY - Last Filed: 09/11/19 20:09> <KUNALKANIKA Vela - Last Filed: 09/12/19 00:34> - Discharge Clinical Impression: Dyspnea Qualifiers: Dyspnea type: shortness of breath Qualified Code(s): R06.02 - Shortness of br eath; R06.00 - Dyspnea, unspecified; R06.01 - Orthopnea UTI (urinary tract infection) Qualifiers: Urinary tract infection type: acute cystitis Hematuria presence: without hematuria Qualified Code(s): N30.00 - Acute cystitis without hematuria Qualifiers: Weeks of gestation: 11 weeks Qualified Code(s): Z3A.11 - 11 weeks gestation of Condition: Stable Disposition: HOME, SELF-CARE Instructions: Nitrofurantoin ([facility]) Additional Instructions: Please take Macrobid as prescribed. Please finish all doses unless we call you to change it based off your urine culture. Please follow-up with [facility] listed in 1 to 3 days. Please return to ER for any worsening symptoms, including nausea/vomiting, shortness of breath, chest pain, fever, abdominal pain, vaginal bleeding/discharge, or any other symptoms that are concerning to you. Prescriptions: Nitrofurantoin/Nitrofuran Mac [Macrobid 100 mg Capsule] 1 tab PO BID #20 capsule Forms: Special Work Note Referrals: ELIZABETH MAN DO [ACTIVE STAFF] - Follow up in 3-5 days
[2019-09-11] MEDS ORDERED: DIPHENHYDRAMINE HCL 50 MG/ML VIAL IV ONE (19:54)
[2019-09-11] MEDS ORDERED: METOCLOPRAMIDE HCL INJ/PF 10 MG/2 ML SDV IV ONE (19:54)
[2019-09-11 21:20] LABS: ARTERIAL BLOOD BASE EXCESS 1.2 mmol/L; ARTERIAL BLOOD H2CO3 1.06 mmol/L (1.05-1.35); ARTERIAL BLOOD HCO3 24.6 mmol/L (20-24); ARTERIAL BLOOD O2 SATURATION 89.4 % (94-98); ARTERIAL BLOOD PCO2 35.3 mmHg (35-45); ARTERIAL BLOOD PH 7.46 (7.35-7.45); ARTERIAL BLOOD PO2 52.9 mmHg (80-100); ARTERIAL BLOOD TOTAL CO2 25.7 mmol/L (21-25)
[2019-09-11 21:21] LABS: ARTERIAL BLOOD FIO2 ROOM AIR
--- NOTE | 2019-09-11 23:17 | RADIOLOGY REPORT (SQ) ---
EXAM DESCRIPTION: CT CHEST ANGIOGRAPHY WITHOUT THEN WITH IV CONTRAST COMPLETED DATE/TME: 09/11/2019 21:32 CLINICAL HISTORY: 28 years, Female, 11 week gestation, dyspnea, elevated d dimer COMPARISON: None. TECHNIQUE: 522 Images stored on PACS. All CT scanners at this facility use dose modulation, iterative reconstruction, and/or weight based dosing when appropriate to reduce radiation dose to as low as reasonably achievable (ALARA). Axial images with coronal and sagittal MIPS [facility]: Dose Right [facility]: CareDose [facility]: Dose Right [facility]: Teradose 4D [facility]: [employer] LIMITATIONS: None. FINDINGS: Evaluation is somewhat limited due to contrast bolus with suboptimal opacification of the distal arterial branches. No large or central pulmonary embolus. Negative for thoracic aortic aneurysm or dissection. No mediastinal or hilar adenopathy. Heart and pericardium are unremarkable. Upper abdomen unremarkable. No pneumothorax. Airways are patent. Lungs are clear IMPRESSION: No acute intrathoracic process TECHNICAL DOCUMENTATION: Quality ID # [id number]: Final reports with documentation of one or more dose reduction techniques (e.g., Automated exposure control, adjustment of the mA and/or kV according to patient size, use of iterative reconstruction technique) copyright 2011 [employer]- All Rights Reserved
[2019-09-12 00:36] VITALS: BP 154/99
== END 2019-09-12 00:49 | disposition home or self-care (01) ==
LOC: ER 12:50
DX: O23.11 Infections of bladder in pregnancy, first trimester (principal); O30.001 Twin pregnancy, unspecified number of placenta and unspecified number of amniotic sacs, first trimester; O16.1 Unspecified maternal hypertension, first trimester; O26.891 Other specified pregnancy related conditions, first trimester; R06.02 Shortness of breath; R06.00 Dyspnea, unspecified; R06.01 Orthopnea; R30.0 Dysuria; R11.0 Nausea; Z3A.11 11 weeks gestation of pregnancy; Z79.899 Other long term (current) drug therapy
CPT/HCPCS: 93005; 36415; 87086; 82803; 83735; 84443; 85025; 80053; 81001; 84484; 85379; 71046; 71275; 93010; J1200; J2765; J0696

== ENCOUNTER 2020-02-14 00:15 | Emergency (ER) | payer MEDICAID ==
[2020-02-14 01:05] LABS: ABSOLUTE EOSINOPHILS # (AUTO) 0.2 10^3/uL (0.0-0.6); ABSOLUTE LYMPHOCYTES (AUTO) 1.4 10^3/uL (0.5-4.7); ABSOLUTE MONOCYTES (AUTO) 0.2 10^3/uL (0.1-1.4); BASOPHILS % (AUTO) 0.8 % (0-2); EOSINOPHILS % (AUTO) 4.8 % (0-6); HEMATOCRIT 32.1 % (36.0-47.0); HEMOGLOBIN 10.7 g/dL (12.0-15.5); MEAN CORPUSCULAR HEMOGLOBIN 28.4 pg (27.0-33.4); MEAN CORPUSCULAR HGB CONC 33.4 g/dL (32.0-36.0); MEAN CORPUSCULAR VOLUME 85 fl (80-97); MONOCYTES % (AUTO) 5.9 % (3-13); PLATELET COUNT 314 10^3/uL (150-450); RED BLOOD COUNT 3.77 10^6/uL (3.72-5.28); SEGMENTED NEUTROPHILS % (AUTO) 52.5 % (42-78); TOTAL CELLS COUNTED % (AUTO) 100 %; WHITE BLOOD COUNT 3.8 10^3/uL (4.0-10.5)
[2020-02-14 01:29] LABS: ALBUMIN 4.2 g/dL (3.5-5.0); ALKALINE PHOSPHATASE 100 U/L (38-126); ANION GAP 7 (5-19); ASPARTATE AMINO TRANSFERASE 26 U/L (14-36); BILIRUBIN,TOTAL 0.5 mg/dL (0.2-1.3); BLOOD UREA NITROGEN 14 mg/dL (7-20); CALCIUM 9.6 mg/dL (8.4-10.2); CARBON DIOXIDE 27 mmol/L (22-30); CHLORIDE 103 mmol/L (98-107); GLUCOSE 128 mg/dL (75-110); POTASSIUM 4.9 mmol/L (3.6-5.0); TOTAL PROTEIN 7.6 g/dL (6.3-8.2)
--- NOTE | 2020-02-14 02:30 | ER Document Report ---
ED General - General Chief Complaint: Vaginal Bleeding Stated Complaint: VAGINAL BLEEDING Time Seen by Provider: 02/14/20 00:52 Notes: 29 year old female presents to the ED complaining of heavy vaginal bleeding starting this evening after she had a 2 weeks ago due to complications of a twin . Patient states that she felt a gush of bleeding this evening and it looked like a handful of blood and she has continued to have l ight bleeding since then. Also states that she felt lightheaded after blood came out. Patient is worried that she may be bleeding to . Denies any fevers or foul-smelling vaginal discharge. Denies chest pain, shortness of breath, blood thinners. Admits to history of preeclampsia, states she is still taking labetalol, states she has been told her blood pressures have been improving. Denies any headaches. TRAVEL OUTSIDE OF THE [place] IN LAST 30 DAYS: No - Related Data Allergies/Adverse Reactions: latex Adverse Reaction (Verified 02/14/20 00:24) Home Medications: LABETAOLOL Past Medical History - General Information source: Patient - Social History Smoking Status: Never Smoker Frequency of alcohol use: None Drug Abuse: None Family History: Hypertension Patient has homicidal ideation: No - Past Medical History Cardiac Medical History: Reports: Hx Hypertension Past Surgical History: Reports: Hx Adenoidectomy Review of Systems - Review of Systems Constitutional: No symptoms reported EENT: No symptoms reported Cardiovascular: See HPI, Lightheaded. denies: Chest pain, Heart racing, Dyspnea Respiratory: No symptoms reported Gastrointestinal: No symptoms reported Female Genitourinary: See HPI -: Yes All other systems reviewed and negative Physical Exam - Vital signs Vitals: Temp 98.5 F 02/14/20 00:24 Interpretation: Hypertensive - Notes Notes: GENERAL: Alert, interacts well. Anxious. HEAD: Normocephalic, atraumatic EYES: Pupils equal, round and reactive to light, extraocular movements intact. ENT: Oral mucosa moist, tongue midline. NECK: Full range of motion, supple, trachea midline. LUNGS: Clear to auscultation bilaterally, no wheezes, rales or rhonchi, no respiratory distress. HEART: Regular rate and rhythm, no murmurs, gallops, rubs. ABDOMEN: Soft, nontender, nondistended, bowel sounds present in all 4 quadrants. low transverse incision healing well wihtout discharge or drainage. EXTREMITIES: Moves all 4 extremities spontaneously, no edema, radial and dorsalis pedis pulses 2/4 bilaterally. No cyanosis. NEUROLOGICAL: Alert and oriented x3, normal speech, biceps and patellar DTRs 2+ bilaterally. PELVIC:Small amount of dark red blood pooling, minimal blood from the cervix, no clots noted, mildly tender on exam. No purulence. PSYCH: Anxious. SKIN: Warm, Dry, normal turgor. Course - Re-evaluation Re-evalutation: 02/14/20 02:30 CBC shows anemia that is expected for having been delivered of twins via C- section 2 weeks ago, hemoglobin is 10.7, platelets normal 02/14/20 02:30 CMP unremarkable, LFTs normal. - Vital Signs Vital signs: Temp Pulse Resp BP Pulse Ox 98.5 F 100 16 150/120 H 100 02/14/20 00:30 02/14/20 00:30 02/14/20 00:30 02/14/20 00:30 02/14/20 00:30 - Laboratory Result Diagrams: 02/14/20 00:56 02/14/20 00:56 Laboratory results interpreted by me: 02/14/20 02/14/20 00:56 00:56 WBC 3.8 L Hgb 10.7 L Hct 32.1 L RDW 16.0 H Glucose 128 H Discharge - Discharge Clinical Impression: hemorrhage of vagina Condition: Stable Disposition: HOME, SELF-CARE Additional Instructions: The bleeding that you are having can be perfectly normal around the 2 week anna marie after delivery. Your hemoglobin was 10.7 today. This is a good hemoglobin for somebody who just delivered twins 2 weeks ago. You do not need a blood transfusion. You should be taking iron supplements along with vitamin C. You were likely prescribed these after delivery. If not you may either continue to take a regular vitamin daily or you may buy an iron supplement [id number] and take 1 tablet a day. Please return if you have vaginal bleeding that is heavy enough to soak through more than 1 pad per hour for 4 hours in a row, if you soak through more than 2 pads in 1 hour, you develop fevers, severe abdominal pain, foul-smelling discharge from your vagina or any new or concerning problems.
[2020-02-14 02:46] VITALS: BP 133/90
== END 2020-02-14 02:54 | disposition home or self-care (01) ==
LOC: ER 00:15
DX: O72.1 Other immediate postpartum hemorrhage (principal); R42 Dizziness and giddiness; Z91.040 Latex allergy status; I10 Essential (primary) hypertension
CPT/HCPCS: 36415; 80053; 84702; 85025; 99284

== ENCOUNTER 2020-03-28 23:06 | Emergency (ER) | payer MEDICAID ==
--- NOTE | 2020-03-29 00:25 | ER Document Report ---
ED Medical Screen (RME) - General Chief Complaint: Abdominal Pain Stated Complaint: ABDOMINAL PRESSURE Time Seen by Provider: 03/29/20 00:19 Mode of Arrival: Ambulatory Information source: Patient Notes: HPI; 29-year-old female presents emergency room complaining of abdominal pressure in the mid epigastric region that started earlier tonight. States it gets better after belching. Nothing seems to make it worse. She denies any nausea, vomiting, fevers, no urinary symptoms. Also complaining of the left side of her neck hurting and a sore throat. No medications for symptoms. Unknown last menstrual cycle as patient is 2 months and currently breast-feeding. PE: Alert and oriented x3. No acute distress noted. Lungs: Clear to auscultation without rales, rhonchi, wheezes. Heart: Regular rate rhythm without murmurs, rubs, gallops. Abdomen is soft, nontender, nondistended. Positive bowel sounds x4. Mild left cervical anterior lymphadenopathy noted. No pharyngeal erythema or exudate. I have greeted and performed a rapid initial assessment of this patient. A comprehensive ED assessment and evaluation of the patient, analysis of test results and completion of the medical decision making process will be conducted by additional ED providers. I have specifically instructed the patient or family members with the patient to immediately return to any nursing staff should anything change in the patient's condition or with their chief complaint. TRAVEL OUTSIDE OF THE [place] IN LAST 30 DAYS: No - Related Data Allergies/Adverse Reactions: latex Adverse Reaction (Verified 02/14/20 00:24) Home Medications: Labetolol. Zoloft Past Medical History - Social History Chew tobacco use (# tins/day): No Frequency of alcohol use: None Drug Abuse: None - Past Medical History Cardiac Medical History: Reports: Hx Hypertension Past Surgical History: Reports: Hx Adenoidectomy Physical Exam - Vital signs Vitals: Temp Pulse Resp BP Pulse Ox 98.4 F 80 16 146/100 H 98 03/28/20 23:11 03/28/20 23:11 03/28/20 23:11 03/28/20 23:11 03/28/20 23:11 Course - Vital Signs Vital signs: Temp Pulse Resp BP Pulse Ox 98.4 F 80 16 146/100 H 98 03/29/20 00:08 03/28/20 23:11 03/28/20 23:11 03/28/20 23:11 03/28/20 23:11
[2020-03-29 01:05] LABS: APPEARANCE,URINE CLEAR; BILIRUBIN,URINE NEGATIVE (NEGATIVE); COLOR,URINE YELLOW; GLUCOSE, URINE NEGATIVE (NEGATIVE); KETONES,URINE TRACE mg/dL (NEGATIVE); LEUKOCYTE ESTERASE,URINE NEGATIVE (NEGATIVE); NITRITE,URINE NEGATIVE (NEGATIVE); PROTEIN,URINE NEGATIVE (NEGATIVE); URINE SPECIFIC GRAVITY 1.016; UROBILINOGEN,URINE NEGATIVE mg/dL (<2.0)
[2020-03-29 07:31] LABS: ABSOLUTE EOSINOPHILS # (AUTO) 0.1 10^3/uL (0.0-0.6); ABSOLUTE LYMPHOCYTES (AUTO) 1.3 10^3/uL (0.5-4.7); ABSOLUTE MONOCYTES (AUTO) 0.4 10^3/uL (0.1-1.4); ABSOLUTE NEUT (AUTO) 3.4 10^3/uL (1.7-8.2); BASOPHILS % (AUTO) 0.7 % (0-2); EOSINOPHILS % (AUTO) 1.7 % (0-6); HEMATOCRIT 38.9 % (36.0-47.0); HEMOGLOBIN 12.6 g/dL (12.0-15.5); LYMPHOCYTES % (AUTO) 24.6 % (13-45); MEAN CORPUSCULAR HEMOGLOBIN 26.6 pg (27.0-33.4); MEAN CORPUSCULAR HGB CONC 32.4 g/dL (32.0-36.0); MEAN CORPUSCULAR VOLUME 82 fl (80-97); MONOCYTES % (AUTO) 7.9 % (3-13); PLATELET COUNT 282 10^3/uL (150-450); RED BLOOD COUNT 4.74 10^6/uL (3.72-5.28); RED CELL DISTRIBUTION WIDTH 16.8 % (11.5-14.0); SEGMENTED NEUTROPHILS % (AUTO) 65.1 % (42-78); TOTAL CELLS COUNTED % (AUTO) 100 %; WHITE BLOOD COUNT 5.2 10^3/uL (4.0-10.5)
--- NOTE | 2020-03-29 07:51 | ER Document Report ---
ED General - General Chief Complaint: Abdominal Pain Stated Complaint: ABDOMINAL PRESSURE Time Seen by Provider: 03/29/20 00:19 Mode of Arrival: Ambulatory TRAVEL OUTSIDE OF THE [place] IN LAST 30 DAYS: No - HPI Notes: Chief complaint: Sore throat and pressure upper mid abdomen HPI: 29-year-old female with history of depression, panic attacks and hypertension presented to the department overnight with development of mild pressure sensation epigastrium associated with belching. Also noted slight sore throat. No fever. Denies known COVID exposure or travel outside the area. She is taking some medication for depression and panic attacks and also is on an antihypertensive. She reports allergy to latex. Last menses 2 weeks ago described as normal. - Related Data Allergies/Adverse Reactions: latex Adverse Reaction (Verified 02/14/20 00:24) Home Medications: Labetolol. Zoloft Past Medical History - General Information source: Patient, [facility] Records - Social History Smoking Status: Current Every Day Smoker Chew tobacco use (# tins/day): No Frequency of alcohol use: None Drug Abuse: None Lives with: Family Family History: Hypertension - Past Medical History Cardiac Medical History: Reports: Hx Hypertension Psychiatric Medical History: Reports: Hx Depression, Other - Panic attacks Past Surgical History: Reports: Hx Adenoidectomy Review of Systems - Review of Systems Notes: Constitutional: Negative for fever. HENT: As per HPI. Eyes: Negative for visual changes. Cardiovascular: Negative for chest pain. Respiratory: Negative for shortness of breath. Gastrointestinal: As per HPI. Genitourinary: Negative for dysuria. Musculoskeletal: Negative for back pain. Skin: Negative for rash. Neurological: Negative for headaches, weakness or numbness. 10 point ROS negative except as marked above and in HPI. Physical Exam - Vital signs Vitals: Temp Pulse Resp BP Pulse Ox 98.4 F 80 16 146/100 H 98 03/28/20 23:11 03/28/20 23:11 03/28/20 23:11 03/28/20 23:11 03/28/20 23:11 - Notes Notes: GENERAL: Well-developed well-nourished female approximately stated age appearing in no acute distress. SKIN: Good turgor no rashes. HEAD: Normocephalic atraumatic. EYES: PERRLA. EOMI. Conjunctivae and sclerae clear. EARS: CANALS AND TMS CLEAR. NOSE: CLEAR. MOUTH: Moist mucosa. Good dentition. No stridor or edema. No drooling. NECK: Supple. No masses or thyromegaly. No adenopathy. Carotids 2+ without bruits. No JVD. BACK: Symmetrical without tenderness. CHEST: Respirations unlabored. Breath sounds clear and symmetrical. HEART: Regular rhythm. No murmur gallop or rub. ABDOMEN: Soft nontender without masses, organomegaly or rebound. Bowel sounds normally active. No bruits. GENITALIA: Deferred. EXTREMITIES: No edema. No calf tenderness. Cap refill less than 1.5 seconds. Dorsalis pedis and posterior tibial pulses 3+ and symmetrical. NEUROLOGICAL: GCS 15. Alert and oriented x3. Normal gait. Fluent speech. Cranial nerves II through XII intact. Sensorimotor and cerebellar normal. Normal tone. PSYCHIATRIC: Appropriate affect. Course - Re-evaluation Re-evalutation: 03/29/20 09:46 Gallbladder ultrasound remarkable for some fatty changes of the liver and otherwise normal study. Patient is advised of these findings. I think her present symptoms are unrelated and probably due to a viral syndrome. I told her she could follow-up on this with her primary care physician. Findings, clinical impression and plan of treatment have been discussed with patient/family. Understanding of current findings and recommendations has been acknowledged by them and there is agreement regarding disposition and follow-up. - Vital Signs Vital signs: Temp Pulse Resp BP Pulse Ox 98.2 F 82 16 133/97 H 100 03/29/20 07:47 03/29/20 07:47 03/29/20 07:47 03/29/20 07:47 03/29/20 07:47 - Laboratory Result Diagrams: 03/29/20 07:20 03/29/20 07:20 Laboratory results interpreted by me: 03/29/20 03/29/20 03/29/20 00:39 07:20 07:20 MCH 26.6 L RDW 16.8 H AST 37 H ALT 48 H Total Protein 8.4 H Urine Ketones TRACE H Urine Blood SMALL H - Diagnostic Test Radiology reviewed: Reports reviewed Radiology results interpreted by me: 03/29/20 09:46 Per radiologist: Gallbladder ultrasound shows no stones or acute inflammatory changes and no ductal dilatation. She has some mild fatty infiltration of the liver noted. Discharge - Discharge Clinical Impression: Acute viral syndrome Condition: Stable Disposition: HOME, SELF-CARE Additional Instructions: Return here as needed for new or worsening symptoms. Discussed mild liver function abnormality with your primary care physician. Referrals: [facility] [Provider Group] - Follow up as needed
[2020-03-29 07:56] LABS: ALBUMIN 4.7 g/dL (3.5-5.0); ALKALINE PHOSPHATASE 78 U/L (38-126); ANION GAP 9 (5-19); ASPARTATE AMINO TRANSFERASE 37 U/L (14-36); BILIRUBIN,TOTAL 0.8 mg/dL (0.2-1.3); BLOOD UREA NITROGEN 12 mg/dL (7-20); CALCIUM 9.8 mg/dL (8.4-10.2); CARBON DIOXIDE 26 mmol/L (22-30); CHLORIDE 105 mmol/L (98-107); GLUCOSE 103 mg/dL (75-110); TOTAL PROTEIN 8.4 g/dL (6.3-8.2)
--- NOTE | 2020-03-29 09:28 | RADIOLOGY REPORT (SQ) ---
EXAM DESCRIPTION: U/S ABDOMEN LIMITED W/O DOP IMAGES COMPLETED DATE/TIME: 03/29/2020 9:05 am REASON FOR STUDY: Epigastric pain and abnormal liver function tests COMPARISON: None. TECHNIQUE: Dynamic and static grayscale images acquired of the abdomen and recorded on PACS. Additio nal selected color Doppler and spectral images recorded. LIMITATIONS: None. FINDINGS: PANCREAS: No masses. Visualized pancreatic duct normal caliber. LIVER: No masses. Fatty infiltration. LIVER VASCULATURE: Normal directional flow of the main portal vein and hepatic veins. GALLBLADDER: No stones. Normal wall thickness. No pericholecystic fluid. ULTRASOUND-DETECTED GOINS'S SIGN: Negative. INTRAHEPATIC DUCTS AND COMMON DUCT: CBD and intrahepatic ducts normal caliber. No filling defects. INFERIOR VENA CAVA: Normal flow. AORTA: No aneurysm. RIGHT KIDNEY: Normal size. Normal echogenicity. No solid or suspicious masses. No hydronephrosis. No calcifications. PERITONEAL AND RIGHT PLEURAL SPACE: No ascites or effusions. OTHER: No other significant findings. IMPRESSION: Hepatic steatosis. Otherwise unremarkable sonographic appearance of the right upper florencia drant. TECHNICAL DOCUMENTATION: JOB ID: [id number] [employer]- All Rights Reserved Reading location - IP/workstation name: [email or web address]
[2020-03-29 10:02] VITALS: BP 141/91
== END 2020-03-29 10:03 | disposition home or self-care (01) ==
LOC: ER 23:06
DX: B34.9 Viral infection, unspecified (principal); R14.2 Eructation; K76.0 Fatty (change of) liver, not elsewhere classified; J02.9 Acute pharyngitis, unspecified; F17.200 Nicotine dependence, unspecified, uncomplicated; I10 Essential (primary) hypertension; F32.9 Major depressive disorder, single episode, unspecified; F41.0 Panic disorder [episodic paroxysmal anxiety]; Z79.899 Other long term (current) drug therapy; Z91.041 Radiographic dye allergy status
CPT/HCPCS: 36415; 76705; 80053; 81001; 83690; 85025; 87070; 87880; 99284

== ENCOUNTER 2020-04-03 04:50 | Emergency (ER) | payer MEDICAID ==
[2020-04-03 08:16] VITALS: BP 131/97
--- NOTE | 2020-04-03 14:05 | ER Document Report ---
Entered by OZ DOOLEY SCRIBE 04/03/20 0705 Acting as scribe for:ION MCCALL IV, MD ED Blood Pressure Problem - General Chief Complaint: High Blood Pressure Stated Complaint: REPORTS HIGH BLOOD PRESSURE Time Seen by Provider: 04/03/20 06:58 Primary Care Provider: NAA ELAINE DO [Primary Care Provider] - Follow up as needed Mode of Arrival: Ambulatory Information source: Patient Notes: This 29 year old female patient presents to the emergency department today with complaints of elevated blood pressure. Patient is 9 weeks post and she mentions that she was put on 200mg labetalol twice daily during the but after her she felt like it was "bottoming out" her pressure so she went to her doctor yesterday who told her to stop taking it if she felt this way. Patient reports that at 1:00 AM she felt like her pressure was high because she had a headache, she took it and it was 140/100 so she took 100mg of labetalol. At 4:00 AM she checked it again and it was unchanged so she took another 100mg Labetalol. Patient does endorse having panic attacks which happened tonight. Patient is tearful and appears to be quite anxious. TRAVEL OUTSIDE OF THE [place] IN LAST 30 DAYS: No - Related Data Allergies/Adverse Reactions: latex Adverse Reaction (Verified 02/14/20 00:24) Home Medications: labatal Past Medical History - General Information source: Patient - Social History Smoking Status: Never Smoker Cigarette use (# per day): No Frequency of alcohol use: None Drug Abuse: None Lives with: Family Family History: Reviewed & Not Pertinent, Hypertension Patient has homicidal ideation: No - Past Medical History Cardiac Medical History: Reports: Hx Hypertension Psychiatric Medical History: Reports: Hx Anxiety, Hx Depression Past Surgical History: Reports: Hx Adenoidectomy Review of Systems - Review of Systems Constitutional: No symptoms reported EENT: No symptoms reported Cardiovascular: See HPI, Other - elevated BP Respiratory: No symptoms reported Gastrointestinal: No symptoms reported Genitourinary: No symptoms reported Female Genitourinary: No symptoms reported Musculoskeletal: No symptoms reported Skin: Lesions - Complains of subjective anterior cervical and axillary lymphadenopathy Hematologic/Lymphatic: No symptoms reported Neurological/Psychological: See HPI, Anxiety Physical Exam - Vital signs Vitals: Temp Pulse Resp BP Pulse Ox 97.6 F 88 16 151/104 H 98 04/03/20 05:04 04/03/20 05:04 04/03/20 05:04 04/03/20 05:04 04/03/20 05:04 - Notes Notes: Physical Exam: General: Alert, tearful, anxious. HEENT: Normocephalic. Atraumatic. PERRL. Extraocular movements intact. Oropharynx clear. Neck: Supple. Non-tender. Respiratory: No respiratory distress. Clear and equal breath sounds bilaterally. Cardiovascular: Regular rate and rhythm. Abdominal: Normal Inspection. Non-tender. No distension. Normal Bowel Sounds. Back: No gross abnormalities. Extremities: Moves all four extremities. Upper extremities: Normal inspection. Normal ROM. Lower extremities: Normal inspection. No edema. Normal ROM. Neurological: Normal cognition. AAOx4. Normal speech. Psychological: Tearful, anxious. Skin: Warm. Dry. Normal color. No anterior cervical or axillary nodes. Course - Re-evaluation Re-evalutation: 04/03/20 07:47 Plan of care discussed with patient. This MD recommended patient that she stop taking the labetalol completely given the side effects of the drugs giving her. Patient states she tolerated Norvasc well in the past. This MD is going to write the patient a prescription for Norvasc 5 mg p.o. every morning. All questions were answered prior to discharge. Emergency signs and symptoms, reasons to return to the emergency department discussed with patient. - Vital Signs Vital signs: Temp Pulse Resp BP Pulse Ox 99.1 F 88 10 L 131/97 H 100 04/03/20 08:01 04/03/20 05:04 04/03/20 08:01 04/03/20 08:01 04/03/20 08:01 Discharge - Discharge Clinical Impression: Elevated blood pressure reading Condition: Stable Disposition: HOME, SELF-CARE Additional Instructions: Return to the Emergency Department without delay if any worse. Stop taking labetalol. Have your Norvasc prescription filled and start taking 1 tablet in the morning starting tomorrow morning. HOME CARE INSTRUCTIONS & INFORMATION: Thank you for choosing us for your medical needs. We hope you're satisfied with the care you received. After you leave, you must properly care for your problem and, at the same time, observe its progress. Any condition can change. Some illnesses can change rapidly over hours or days. If your condition worsens, return to the Emergency Department or see your physician promptly. ABOUT YOUR X-RAYS AND EKG'S: If you had an EKG or X-rays taken, they have been read by the Emergency Physician. The X-rays and EKG's will also be read by a Radiologist or Circulation Assistant within 24 hours. If discrepancies are noted, you will be notified by telephone. Please be certain the ED has a correct telephone number & address where you can be reached. Also, realize that some fractures or abnormalities do not show up on initial X-rays. If your symptoms continue, see your physician. ABOUT YOUR LABORATORY TEST: If you had laboratory tests, the results have been reviewed by the Emergency Physician. Some test results (for example cultures) may not be available for several days. You will be contacted if any test result shows you need additional treatment. Please be certain the ED has a correct telephone number and address where you can be reached. ABOUT YOUR MEDICATIONS: You will receive instructions on how to take your medicine on the prescription label you receive. Additional information may be provided by the Pharmacy. If you have questions afterwards, call the ED for clarification or further instructions. Some prescribed medications may cause drowsiness. Do not perform tasks such as driving a car or operating machinery without consulting your Pharmacist. If you feel you need a refill of pain medication, your condition will need re-evaluation. Please do not call for a refill of any medication. ABOUT YOUR SIGNATURE: Signature of this document acknowledges to followin. Understanding that you received emergency treatment and that you may be released before al medical problems are known or treated. Please be certain the ED has a correct phone number & address where you can be reached. 2. Acknowledgement that you will arrange for follow-up care as recommended. 3. Authorization for the Emergency Physician to provide information to your follow-up Physician in order to maximize your care. AT ANY TIME, IF YOUR SYMPTOMS CHANGE SIGNIFICANTLY OR WORSEN OR YOU DEVELOP NEW SYMPTOMS, RETURN TO THE EMERGENCY DEPARTMENT IMMEDIATELY FOR RE-EVALUATION. OUR GOAL IS TO PROVIDE EXCELLENT MEDICAL CARE! WE HOPE THAT WE HAVE MET YOUR EXPECTATIONS DURING YOUR EMERGENCY DEPARTMENT VISIT AND THAT YOU FEEL YOU HAVE RECEIVED EXCELLENT CARE! Prescriptions: Amlodipine Besylate [Norvasc 5 mg Tablet] 5 mg PO QAM 21 Days #21 tablet Referrals: NAA ELAINE, [Primary Care Provider] - Follow up as needed I personally performed the services described in the documentation, reviewed and edited the documentation which was dictated to the scribe in my presence, and it accurately records my words and actions.
== END 2020-04-03 08:17 | disposition home or self-care (01) ==
LOC: ER 04:50
DX: I10 Essential (primary) hypertension (principal); O99.89 Other specified diseases and conditions complicating pregnancy, childbirth and the puerperium; Z79.899 Other long term (current) drug therapy; R51 Headache; F41.9 Anxiety disorder, unspecified
CPT/HCPCS: 99283